=== PATIENT | male | born 1930 | race Caucasian/White ===

== ENCOUNTER → 2019-01-17 | Outpatient (CLI) | payer MEDICARE ==
[~2019-01-17] MED LIST: AC325T PO; ALPR.25T PO; ALPR.5T; AMIT25TA9 PO; AMLO10TA82 PO; AMT50T; ASCO500C14 PO; ASP81CT; ASP81TEC PO; ATR20T PO; C250T PO; CEPH500C PO; CHOL2000 PO; CHOL50003 PO; CIME200T15 PO; CLOP75TA PO; DESV50TA PO; DOXA1TAB PO; FURO20TA4 PO; LACT10SO5 PO; LOSA100T16 PO; MULT1CAP27 PO; NFNEB10T PO; OMG1KC PO; OXYB5TAB PO; PNT40TEC PO; POTA10CA43 PO; SENN1TAB76 PO; TMZP15C PO; WRF2.5T PO; coq10 PO
[2019-01-17 18:12] LABS: BILIRUBIN,URINE NEGATIVE (NEGATIVE); CLARITY,URINE VERY CLOUDY; COLOR,URINE YELLOW; GLUCOSE, URINE (UA) NEGATIVE (NEGATIVE); KETONES,URINE NEGATIVE (NEGATIVE); LEUKOCYTE ESTERASE ,URINE 3+ (NEGATIVE); NITRITE,URINE NEGATIVE (NEGATIVE); PH,URINE 7 (5-9); PROTEIN,URINE 2+ (NEGATIVE); UROBILINOGEN,URINE NORMAL (NORMAL)
[2019-01-17 18:24] LABS: BACTERIA,URINE TRACE /HPF; RBC,URINE 50-100 /HPF; WBC,URINE >100 /HPF
== END ==
LOC: LABNPT 18:09 → MERGE 18:09
PROVIDERS: ATTEND Internal Medicine
DX: R82.90 Unspecified abnormal findings in urine (principal); R93.89 Abnormal findings on diagnostic imaging of other specified body structures; I82.429 Acute embolism and thrombosis of unspecified iliac vein
CPT/HCPCS: 81000; 87088

== ENCOUNTER 2019-06-13 12:50 | Inpatient (IN) | payer MEDICARE ==
[~2019-06-13] VITALS: Ht 180.3 cm; Wt 101.3 kg
[2019-06-13] MEDS ORDERED: NS IV 1000 ML 1,000 ML IV SCH (13:01)
[2019-06-13] MEDS: NS IV 1000 ML 1,000 ML IV SCH ×2 (13:05→13:48)
--- NOTE | 2019-06-13 13:10 | ED General ---
General Stated Complaint: WEAKNESS Source of Information: Patient, EMS, Long-Term Records Exam Limitations: No Limitations History of Present Illness Date Seen by Provider: Jun 13, 2019 Time Seen by Provider: 12:47 Initial Comments Patient presents to ER by private conveyance EMS with a chief complaint of not feeling well since Wednesday, 2 days ago. He was diagnosed with a UTI started on Augmentin and then after the cultures came back they switched him to some kind of cephalosporin. Patient denies any dysuria fever chills cough shortness of breath nausea vomiting abdominal pain. He does have a history of atrial fibrillation on Eliquis. Uses metoprolol 25 mg. He does not have any chest pain. Allergies and Home Medications Allergies Coded Allergies: benazepril (Verified Adverse Reaction, Unknown, cough, 06/13/19) Home Medications Acetaminophen 325 Mg Tablet, 650 MG PO Q4H PRN for PAIN-MILD OR TEMPATURE, (Reported) Alprazolam 0.5 Mg Tablet, 0.5 MG PO HS, (Reported) Alprazolam 0.25 Mg Tablet, 0.25 MG PO Q12H PRN for ANXIETY, (Reported) Amoxicillin 500 Mg Tablet, 2,000 MG PO UD PRN for 1HR PRIOR TO DENTAL PROCEDURE, (Reported) Apixaban 2.5 Mg Tablet, 2.5 MG PO 1200,2000, (Reported) Ascorbic Acid 500 Mg Tablet, 1,000 MG PO 1200,2000, (Reported) TAKES 2 (500MG) TABLETS Calcium Carbonate/Vitamin D3 1 Each Tablet, 1 TAB PO 1200,2000, (Reported) Calcium Polycarbophil 625 Mg Tablet, 2 TAB PO 1700, (Reported) Cefprozil 250 Mg Tablet, 250 MG PO BID, (Reported) 10 DAY SUPPLY START DATE 06-06-19 Cholecalciferol (Vitamin D3) 2,000 Unit Capsule, 2,000 UNIT PO 1700, (Reported) Doxazosin Mesylate 4 Mg Tablet, 4 MG PO HS, (Reported) Famotidine 20 Mg Tablet, 20 MG PO 1200, (Reported) Fish Oil/Dha/Epa 1 Each Capsule, 1,200 MG PO 1200,2000, (Reported) Folic Acid 1 Mg Tablet, 1 MG PO 1200, (Reported) Mag Hydrox/Al Hydrox/Simeth 30 Ml Oral.susp, 30 ML PO Q4H PRN for INDIGESTION, (Reported) Melatonin 3 Mg Tablet, 3 MG PO HS, (Reported) Menthol/Lanolin/Calamine/Znox 71 Gm Oint, TP TID PRN for REDNESS/IRRITATION, (Reported) APPLY TO BUTTOCKS Metoprolol Tartrate 25 Mg Tablet, 25 MG PO BID, (Reported) HOLD IF PULSE <60 Multivitamin/Iron/Folic Acid 1 Each Tablet, 1 TAB PO 1700, (Reported) Nortriptyline HCl 25 Mg Capsule, 50 MG PO HS, (Reported) TAKES 2 (25MG) CAPSULES Potassium Chloride 20 Meq Tab.er.prt, 20 MEQ PO 1700, (Reported) Triamcinolone Acet 15 Gm Cr, TP DAILY PRN for REDNESS ON FACE BY MOUTH, (Reported) Ubidecarenone/Vit E Acetate 1 Each Capsule, 100 MG PO 1700, (Reported) Venlafaxine HCl 25 Mg Tablet, 25 MG PO 1200, (Reported) [Mineral Cream] , TOP UD PRN for DRYNESS/ITCHING, (Reported) APPLY TOPICALLY TO BODY WHEN C/O DRYNESS AND ITCHY Patient Home Medication List Home Medication List Reviewed: Yes Review of Systems Review of Systems Constitutional: No chills, No diaphoresis; weakness EENTM: No hearing loss, No blurred vision Respiratory: No cough, No short of breath Cardiovascular: No chest pain, No edema Gastrointestinal: No abdominal pain, No constipation, No diarrhea Genitourinary: No discharge, No dysuria Musculoskeletal: No back pain, No joint pain Past Thiwlpm-Jwrnum-Rxnvbc Hx Patient Social History Alcohol Use: Denies Use Recreational Drug Use: No Smoking Status: Never a Smoker Immunizations Up To Date Date of Influenza Vaccine: Jul 18, 2014 Past Medical History Atrial Fibrillation, Chronic Edema/Swelling, Coronary Artery Disease, Deep Vein Thrombosis, Heart Attack, Hypertension Reproductive Disorders: No Gastroesophageal Reflux Anxiety, Depression Physical Exam-Suspected Sepsis Physical Exam Vital Signs Vital Signs - First Documented 06/13/19 12:55 Temp 97.6 Pulse 112 Resp 18 B/P (MAP) 131/76 (94) Capillary Refill : Height, Weight, BMI Height: 5'11" Weight: 220lbs. oz. 99.666143lh; BMI Method:Stated General Appearance: No Apparent Distress, WD/WN Eyes: Bilateral Eye Normal Inspection, Bilateral Eye PERRL, Bilateral Eye EOMI HEENT: PERRL/EOMI, Normal ENT Inspection, Pharynx Normal, Moist Mucous Membranes Neck: Full Range of Motion, Normal Inspection, Non Tender Respiratory: Lungs Clear, Normal Breath Sounds, No Accessory Muscle Use, No Respiratory Distress Cardiovascular: No Edema, Normal Peripheral Pulses, Irregularly Irregular, Tachycardia Gastrointestinal: Normal Bowel Sounds, No Organomegaly Genital/Rectal: Other (penis is nontender without lesions and has some purulent matter and urinary incontinence in brief.) Extremity: Normal Capillary Refill, Pedal Edema (1+) Neurologic/Psychiatric: Alert, No Motor/Sensory Deficits, Normal Mood/Affect, Other (oriented to person place) Skin: normal color, warm/dry Focused Exam Sepsis Stage: Sepsis Possible Source: Genitouriary Lactate Level 06/13/19 13:00: Lactic Acid Level 1.94 Time of Focused Exam: 15:11 Respiratory: Lungs Clear, Normal Breath Sounds, No Accessory Muscle Use, No Respiratory Distress Cardiovascular: Regular Rate, Rhythm, No Edema, Normal Peripheral Pulses, Tachycardia Capillary Refill: Less Than 3 Seconds Peripheral Pulses: 2+ Dorsalis Pedis (R), 2+ Left Dors-Pedis (L), 2+ Radial Pulses (R), 2+ Radial Pulses (L) Skin: normal color, warm/dry Lactic Acid Level Laboratory Tests Test 06/13/19 13:00 Lactic Acid Level 1.94 MMOL/L (0.50-2.00) Within 3hrs of presentation: Admin fluids, Admin ABX, Blood cultures prior to ABX's, Focus exam, Lactate level Progress/Results/Core Measures Suspected Sepsis SIRS Temperature: Pulse: Respiratory Rate: Laboratory Tests 06/13/19 13:00: White Blood Count 13.7H Blood Pressure / Mean: 06/13/19 13:00: Lactic Acid Level 1.94 Laboratory Tests 06/13/19 13:00: Creatinine 3.81H, INR Comment 1.0, Platelet Count 199, Total Bilirubin 1.4H Results/Orders Lab Results Laboratory Tests Test 06/13/19 13:00 06/13/19 13:34 06/13/19 13:35 Range/Units White Blood Count 13.7 H 4.3-11.0 10^3/uL Red Blood Count 4.29 L 4.35-5.85 10^6/uL Hemoglobin 13.3 13.3-17.7 G/DL Hematocrit 41 40-54 % Mean Corpuscular Volume 97 80-99 FL Mean Corpuscular Hemoglobin 31 25-34 PG Mean Corpuscular Hemoglobin Concent 32 32-36 G/DL Red Cell Distribution Width 13.7 10.0-14.5 % Platelet Count 199 130-400 10^3/uL Mean Platelet Volume 10.2 7.4-10.4 FL Neutrophils (%) (Auto) 82 H 42-75 % Lymphocytes (%) (Auto) 8 L 12-44 % Monocytes (%) (Auto) 10 0-12 % Eosinophils (%) (Auto) 0 0-10 % Basophils (%) (Auto) 0 0-10 % Neutrophils # (Auto) 11.2 H 1.8-7.8 X 10^3 Lymphocytes # (Auto) 1.1 1.0-4.0 X 10^3 Monocytes # (Auto) 1.3 H 0.0-1.0 X 10^3 Eosinophils # (Auto) 0.0 0.0-0.3 10^3/uL Basophils # (Auto) 0.0 0.0-0.1 10^3/uL Prothrombin Time 13.9 12.2-14.7 SEC INR Comment 1.0 0.8-1.4 Activated Partial Thromboplast Time 30 24-35 SEC Sodium Level 139 135-145 MMOL/L Potassium Level 5.3 H 3.6-5.0 MMOL/L Chloride Level 105 98-107 MMOL/L Carbon Dioxide Level 19 L 21-32 MMOL/L Anion Gap 15 H 5-14 MMOL/L Blood Urea Nitrogen 34 H 7-18 MG/DL Creatinine 3.81 H 0.60-1.30 MG/DL Estimat Glomerular Filtration Rate 15 BUN/Creatinine Ratio 9 Glucose Level 179 H 70-105 MG/DL Lactic Acid Level 1.94 0.50-2.00 MMOL/L Calcium Level 10.1 8.5-10.1 MG/DL Corrected Calcium 9.9 8.5-10.1 MG/DL Total Bilirubin 1.4 H 0.1-1.0 MG/DL Aspartate Amino Transf (AST/SGOT) 46 H 5-34 U/L Alanine Aminotransferase (ALT/SGPT) 71 H 0-55 U/L Alkaline Phosphatase 138 H 40-136 U/L Troponin I 0.083 H <0.028 NG/ML Total Protein 8.1 6.4-8.2 GM/DL Albumin 4.2 3.2-4.5 GM/DL Urine Color YELLOW Urine Clarity CLOUDY H Urine pH 7 5-9 Urine Specific [place] 1.010 L 1.016-1.022 Urine Protein 3+ H NEGATIVE Urine Glucose (UA) NEGATIVE NEGATIVE Urine Ketones NEGATIVE NEGATIVE Urine Nitrite POSITIVE H NEGATIVE Urine Bilirubin NEGATIVE NEGATIVE Urine Urobilinogen NORMAL NORMAL MG/DL Urine Leukocyte Esterase 3+ H NEGATIVE Urine RBC (Auto) 4+ H NEGATIVE Urine RBC NONE /HPF Urine WBC >100 H /HPF Urine Squamous Epithelial Cells NONE /HPF Urine Crystals NONE /LPF Urine Bacteria LARGE H /HPF Urine Casts NONE /LPF Urine Mucus NEGATIVE /LPF Urine Culture Indicated CULTURE PENDING Micro Results Microbiology 06/13/19 Wet Prep - Final, Complete My Orders Orders - NINA MCCARTY Metoprolol Tartrate Injection (Lopressor (06/13/19 13:15) Cbc With Automated Diff (06/13/19 13:01) Comprehensive Metabolic Panel (06/13/19 13:01) Blood Culture (06/13/19 13:01) Sputum Culture (06/13/19 13:01) Urinalysis (06/13/19 13:01) Urine Culture (06/13/19 13:01) Protime With Inr (06/13/19 13:01) Partial Thromboplastin Time (06/13/19 13:01) Chest 1 View, Ap/Pa Only (06/13/19 13:01) Ed Iv/Invasive Line Start (06/13/19 13:01) Ed Iv/Invasive Line Start (06/13/19 13:01) Ekg Tracing (06/13/19 13:01) Troponin I (06/13/19 13:01) Vital Signs Adult Sepsis Patie Q15M (06/13/19 13:01) O2 (06/13/19 13:01) Remove Rings In Anticipation O (06/13/19 13:01) Lactic Acid Analyzer (06/13/19 13:01) Ns Iv 1000 Ml (Sodium Chloride 0.9%) (06/13/19 13:01) Ceftriaxone For Iv Use (Rocephin For I (06/13/19 13:15) Ed Iv/Invasive Line Start (06/13/19 13:01) Ns Iv 1000 Ml (Sodium Chloride 0.9%) (06/13/19 13:01) Wet Prep (06/13/19 13:37) Neis Davonte Dna Urine Test (06/13/19 13:37) Chlamydia Trachomatis Urine (06/13/19 13:37) Azithromycin Tablet (Zithromax Tablet) (06/13/19 13:45) Catheter(Urinary) Insert & Ass 03,15 (06/13/19 13:39) Acetaminophen Tablet (Tylenol Tablet) (06/13/19 14:00) Syphilis Antibody Screen (06/13/19 13:37) Chlamydia Trachomatis Swab (06/13/19 13:37) Neisseria Gonorrhea Swab (06/13/19 13:37) General/Regular (06/13/19 Lunch) Catheter(Urinary) Insert & Ass 03,15 (06/13/19 14:43) Straight Cath For Spec.-Adult (06/13/19 14:43) Medications Given in ED Current Medications Medications Dose Ordered Sig/Zaire Route Start Time Stop Time Status Last Admin Dose Admin Acetaminophen 1,000 mg ONCE ONCE PO 06/13/19 14:00 06/13/19 14:01 DC 06/13/19 14:00 1,000 MG Azithromycin 1,000 mg ONCE ONCE PO 06/13/19 13:45 06/13/19 13:46 DC 06/13/19 14:00 1,000 MG Ceftriaxone Sodium 1000 mg/ Sterile Water 10 ml @ 200 mls/hr ONCE ONCE IV 06/13/19 13:15 06/13/19 13:17 DC 06/13/19 13:20 200 MLS/HR Vital Signs/I&O 06/13/19 12:55 Temp 97.6 Pulse 112 Resp 18 B/P (MAP) 131/76 (94) Capillary Refill : Progress Note : Time: 13:09 Progress Note Tachycardia from either her sepsis related to his UTI and she has no symptoms of or more likely A. fib with rapid ventricular response versus sinus tachycardia. We'll give him 2 L of fluid which would be about a 20 mL/kg fluid bolus Collect a wet prep swab of the purulence coming from the penis and we will also order a GC and chlamydia. He admits to having recently taken up with a lady that resides at the senior care with him. Rocephin and azithromycin. Baseline creatinine 1.2-2.0. ECG Initial ECG Impression Date: Jun 13, 2019 Initial ECG Impression Time: 13:21 Initial ECG Rate: 112 Initial ECG Rhythm: Normal Sinus Initial ECG Intervals: Normal Initial ECG Impression: Normal Comment Sinus tachycardia without clinically significant ST elevation or depression. Diagnostic Imaging Diagonstic Imaging: Xray Plain Films/CT/US/NM/MRI: chest (1v) Comments [facility], [place] NAME: NICOLE BOTELLO [facility] REC#: [id number] PT STATUS: REG ER : 1930 PHYSICIAN: NINA MCCARTY MD ADMIT DATE: 06/13/19/ER Draft Date of Exam:06/13/19 CHEST 1 VIEW, AP/PA ONLY INDICATION: UTI. COMPARISON: 03/24/2012. FINDINGS: There is cardiomegaly. There is a patchy right basilar infiltrate. There is no pleural effusion or pneumothorax. The mediastinum is unremarkable. IMPRESSION: Patchy right basilar infiltrate, suspect for pneumonia. Cardiomegaly. Dictated on workstation # [id number] Dict: 06/13/19 1341 Trans: 06/13/19 1343 [id number] Interpreted by: JOSE CAUSEY MD Electronically signed by: Reviewed: Reviewed by Me Departure Communication (Admissions) Time/Spoke to Admitting Phy: 15:10 Discussed the case lab imaging findings with Dr. Tomas she agrees take the patient. She agrees with cefepime and fluids. Impression Primary Impression: UTI (urinary tract infection) Qualified Codes: N30.01 - Acute cystitis with hematuria Additional Impressions: Sepsis Qualified Codes: A41.9 - Sepsis, unspecified organism; R65.20 - Severe sepsis without septic shock; N17.9 - Acute kidney failure, unspecified Pneumonia Qualified Codes: J18.1 - Lobar pneumonia, unspecified organism Acute kidney injury Elevated troponin I level Disposition: ADMITTED INPATIENT Condition: Stable Admissions Decision to Admit Reason: Admit from ER (General) Decision to Admit/Date: Jun 13, 2019 Time/Decision to Admit Time: 14:00 Departure-Patient Inst. Referrals: BRIANNA DUTTON DO (PCP/Family) Primary Care Physician Copy Copies To 1: BRIANNA DUTTON TITUS J Jun 13, 2019 13:10
[2019-06-13 13:13] LABS: BASOPHILS % (AUTO) 0 % (0-10); EOSINOPHILS % (AUTO) 0 % (0-10); HEMATOCRIT 41 % (40-54); HEMOGLOBIN 13.3 G/DL (13.3-17.7); LYMPHOCYTES # (AUTO) 1.1 X 10^3 (1.0-4.0); LYMPHOCYTES % (AUTO) 8 % (12-44); MEAN CORPUSCULAR HEMOGLOBIN 31 PG (25-34); MEAN CORPUSCULAR HGB CONC 32 G/DL (32-36); MEAN CORPUSCULAR VOLUME 97 FL (80-99); MEAN PLATELET VOLUME 10.2 FL (7.4-10.4); MONOCYTES # (AUTO) 1.3 X 10^3 (0.0-1.0); MONOCYTES % (AUTO) 10 % (0-12); NEUTROPHILS # (AUTO) 11.2 X 10^3 (1.8-7.8); NEUTROPHILS % (AUTO) 82 % (42-75); PLATELET COUNT 199 10^3/uL (130-400); RED CELL DISTRIBUTION WIDTH 13.7 % (10.0-14.5); WHITE BLOOD COUNT 13.7 10^3/uL (4.3-11.0)
[2019-06-13] MEDS ORDERED: meTOprolol 5 MG/5 ML (LOPRESSOR) VIAL IV ONE (13:15)
[2019-06-13] MEDS: cefTRIAXone FOR IV USE 1,000 MG in WATER (STERILE) FOR INJECTION 10 ML IV ONE (13:20)
[2019-06-13 13:21] LABS: PROTHROMBIN TIME PATIENT 13.9 SEC (12.2-14.7)
[2019-06-13 13:29] LABS: ALBUMIN 4.2 GM/DL (3.2-4.5); BILIRUBIN,TOTAL 1.4 MG/DL (0.1-1.0); CALCIUM 10.1 MG/DL (8.5-10.1); CREATININE SERUM 3.81 MG/DL (0.60-1.30); POTASSIUM 5.3 MMOL/L (3.6-5.0); TOTAL PROTEIN 8.1 GM/DL (6.4-8.2)
--- NOTE | 2019-06-13 13:33 | NUR ---
assited physician with genital exam, straight cath inserted at this time for urine sample, pt la nena well
--- NOTE | 2019-06-13 13:40 | NUR ---
16 fr olsen inserted at this time per physician request, sterile technique used, cloudy urine with blood returned, balloon inflated, secured to leg with securement device, pt la nena well, pt requesting tylenol at this time for discomfort in penis after insertion,physician notified of this
--- NOTE | 2019-06-13 13:43 | Diagnostic Imaging Report ---
INDICATION: UTI. COMPARISON: 03/24/2012. FINDINGS: There is cardiomegaly. There is a patchy right basilar infiltrate. There is no pleural effusion or pneumothorax. The mediastinum is unremarkable. IMPRESSION: Patchy right basilar infiltrate, suspect for pneumonia. Cardiomegaly. Dictated by: Dictated on workstation # [id number]
[2019-06-13] MEDS ORDERED: AZITHROMYCIN 250 MG TAB (ZITHROMAX) PO ONE (13:45)
[2019-06-13 13:47] LABS: BILIRUBIN,URINE NEGATIVE (NEGATIVE); COLOR,URINE YELLOW; GLUCOSE, URINE (UA) NEGATIVE (NEGATIVE); KETONES,URINE NEGATIVE (NEGATIVE); LEUKOCYTE ESTERASE ,URINE 3+ (NEGATIVE); NITRITE,URINE POSITIVE (NEGATIVE); PH,URINE 7 (5-9); PROTEIN,URINE 3+ (NEGATIVE); UROBILINOGEN,URINE NORMAL (NORMAL)
[2019-06-13 13:49] LABS: BACTERIA,URINE LARGE /HPF; CLARITY,URINE CLOUDY; WBC,URINE >100 /HPF
[2019-06-13] MEDS ORDERED: ACETAMINOPHEN 500 MG TAB (TYLENOL) PO ONE (14:00)
[2019-06-13] MEDS ORDERED: VENL25TA2 PO (14:20)
[2019-06-13] MEDS ORDERED: POTA20TA15 PO (14:24)
[2019-06-13] MEDS ORDERED: CALC625T9 PO (14:24)
[2019-06-13] MEDS ORDERED: APIX2.5T PO (14:24)
[2019-06-13] MEDS ORDERED: FAMO20TA5 PO (14:24)
[2019-06-13] MEDS ORDERED: MULT1TAB57 PO (14:24)
[2019-06-13] MEDS ORDERED: UBID1CAP53 PO (14:24)
[2019-06-13] MEDS ORDERED: CHOL20002 PO (14:24)
[2019-06-13] MEDS ORDERED: FOLI1TAB24 PO (14:24)
[2019-06-13] MEDS ORDERED: METO-333 PO (14:24)
--- NOTE | 2019-06-13 14:30 | NUR ---
pt sitting quietly in ED bed, pt request food, pt denies any other needs or c/o at this time, vs assessed and stable, pt shows no s/s of distress, will continue to monitor
[2019-06-13] MEDS ORDERED: MAG30ORA2 PO (14:34)
[2019-06-13] MEDS ORDERED: ASCO500T7 PO (14:34)
[2019-06-13] MEDS ORDERED: NORT25CA PO (14:34)
[2019-06-13] MEDS ORDERED: CEFP250T2 PO (14:34)
[2019-06-13] MEDS ORDERED: ALPR0.25 PO (14:34)
[2019-06-13] MEDS ORDERED: MELA3TAB PO (14:34)
[2019-06-13] MEDS ORDERED: AMOX500T2 PO (14:34)
[2019-06-13] MEDS ORDERED: FISH1CAP15 PO (14:34)
[2019-06-13] MEDS ORDERED: DOXA4TAB2 PO (14:34)
[2019-06-13] MEDS ORDERED: ALPR0.5T7 PO (14:34)
[2019-06-13] MEDS ORDERED: ACET325T38 PO (14:34)
[2019-06-13] MEDS ORDERED: TR1C15 TP (14:34)
[2019-06-13] MEDS ORDERED: MENT71OI TP (14:34)
[2019-06-13] MEDS ORDERED: CALC1TAB29 PO (14:34)
[2019-06-13] MEDS ORDERED: MINERAL TOP (14:34)
--- NOTE | 2019-06-13 14:38 | NUR ---
UPDATED MED REC WITH MAR FROM CHRISTI PIPER
--- NOTE | 2019-06-13 14:44 | NUR ---
food order placed at this time
--- NOTE | 2019-06-13 15:20 | NUR ---
report given to Indu
--- NOTE | 2019-06-13 15:30 | NUR ---
NICOLE BOTELLO admitted to room 421-1, with an admitting diagnosis of UTI, on 06/13/19 from ED via CART, accompanied by STAFF. NICOLE BOTELLO introduced to surroundings, call light, bed controls, phone, TV, temperature control, lights, meal times, smoking policy, visitor policy, side rail policy, bathrooms and showers. NICOLE BOTELLO verbalizes understanding that [facility] is not responsible for the loss or damage to any personal effects or valuables that are kept in the patients posession during their hospitalization. The following Patient Care Plans were discussed with the PT: Discharge Planning, PAIN, AND UTI. NICOLE BOTELLO verbalizes understanding of Interdisciplinary Patient Education.
--- NOTE | 2019-06-13 15:45 | NUR ---
DR. IVY NOTIFIED THAT PT TRIGGERS SEVERE SEPSIS RISK. ORDER TO CONTINUE IVF AT CURRENT RATE OF 200CC/HR AND TELEMETRY ORDERED R/T HR 123. PT REMAINS INTERMITTENTLY CONFUSED.
[2019-06-13 16:05] VITALS: BP 116/65
[2019-06-13] MEDS: 1/2 NS IV SOLUTION 1,000 ML IV SCH ×2 (16:12→21:47)
[2019-06-13] MEDS ORDERED: ONDANSETRON 4 MG/2 ML (SDV) Z0FRAN IV PRN (16:15)
[2019-06-13] MEDS ORDERED: CATHETER FLUSH 10 ML SYR IV PRN (16:15)
[2019-06-13] MEDS ORDERED: ACETAMINOPHEN 500 MG TAB (TYLENOL) PO PRN (16:15)
[2019-06-13] MEDS: CEFEPIME 2,000 MG/SWFI 20 ML IV PUSH IV SCH ×2 (16:16)
[2019-06-13 16:50] VITALS: BP 116/65
[2019-06-13 17:14] VITALS: BP 131/76
[2019-06-13] MEDS ORDERED: RT-ALBUTEROL/IPRATROPIUM 3 ML (DUONEB) VIAL INH PRN (18:00)
[2019-06-13] MEDS ORDERED: ALPRAZolam 0.25 MG (XANAX) TAB PO PRN (20:30)
[2019-06-13 20:59] VITALS: BP 158/78
[2019-06-13] MEDS ORDERED: NON-FORMULARY MEDICATION 1 EA EA (Melatonin 3 MG) PO SCH (21:00)
[2019-06-13] MEDS: doxAzosin 4 MG (CARDURA) TAB PO SCH (21:47)
[2019-06-13] MEDS: ALPRAZolam 0.5 MG (XANAX) TAB PO SCH (21:47)
[2019-06-13] MEDS: MELATONIN 3 MG TABLET PO SCH (21:47)
[2019-06-13] MEDS: meTOprolol TARTRATE 25 MG (LOPRESSOR) TABLET PO SCH (21:47)
[2019-06-13] MEDS: NORTRIPTYLINE 25 MG (PAMELOR) CAP PO SCH (21:47)
[2019-06-14 00:40] VITALS: BP 114/60
[2019-06-14] MEDS: 1/2 NS IV SOLUTION 1,000 ML IV SCH ×3 (03:14→19:11)
[2019-06-14 03:50] VITALS: BP 138/72
[2019-06-14 07:19] LABS: BASOPHILS % (AUTO) 0 % (0-10); EOSINOPHILS # (AUTO) 0.1 10^3/uL (0.0-0.3); EOSINOPHILS % (AUTO) 1 % (0-10); HEMATOCRIT 34 % (40-54); HEMOGLOBIN 10.8 G/DL (13.3-17.7); LYMPHOCYTES # (AUTO) 1.7 X 10^3 (1.0-4.0); LYMPHOCYTES % (AUTO) 21 % (12-44); MEAN CORPUSCULAR HEMOGLOBIN 32 PG (25-34); MEAN CORPUSCULAR HGB CONC 32 G/DL (32-36); MEAN CORPUSCULAR VOLUME 98 FL (80-99); MONOCYTES # (AUTO) 0.8 X 10^3 (0.0-1.0); MONOCYTES % (AUTO) 10 % (0-12); NEUTROPHILS # (AUTO) 5.5 X 10^3 (1.8-7.8); NEUTROPHILS % (AUTO) 68 % (42-75); PLATELET COUNT 161 10^3/uL (130-400); RED CELL DISTRIBUTION WIDTH 13.3 % (10.0-14.5); WHITE BLOOD COUNT 8.1 10^3/uL (4.3-11.0)
[2019-06-14 07:47] LABS: BILIRUBIN,TOTAL 0.8 MG/DL (0.1-1.0); CALCIUM 8.2 MG/DL (8.5-10.1); CREATININE SERUM 2.89 MG/DL (0.60-1.30); POTASSIUM 4.5 MMOL/L (3.6-5.0); TOTAL PROTEIN 5.8 GM/DL (6.4-8.2)
[2019-06-14 08:00] VITALS: BP 141/72
--- NOTE | 2019-06-14 08:13 | History & Physical-Hospitalist ---
History of Present Illness HPI/Chief Complaint Patient is an 88-year-old male with a history of vascular dementia, atrial fibrillation, and depression who presented to the emergency room due to weakness. He states that his symptoms started Monday 06/11 and have gradually worsened until yesterday when he was brought to the emergency room for evaluation. He reportedly had been treated for a urinary tract infection with Augmentin and then was switched to cefprozil due to cultures. He denies any fevers or chills, dysuria or frequency. He was found to have a leukocytosis and a UA concerning for persistent infection. Chest x-ray also revealed a patchy right basilar infiltrate. He was admitted for sepsis and failing outpatient management. He reports feeling better today and would like to eat breakfast. Source: patient Date Seen 06/14/19 Time Seen by a Provider: 08:04 Attending Physician Amira Gonzalez MD PCP Guerrero Melendez DO Referring Physician Date of Admission Jun 13, 2019 at 14:50 Home Medications & Allergies Home Medications Reviewed patient Home Medication Reconciliation performed by pharmacy medication reconciliations radioisotope technician and/or nursing. Patients Allergies have been reviewed. Allergies Allergies Coded Allergies benazepril (Verified Adverse Reaction, Unknown, cough, 06/13/19) Past Ivvbmvs-Dpkshd-Rohhro Hx Past Med/Social Hx: Reviewed Nursing Past Med/Soc Hx Patient Social History Marrital Status: Employed/Student: retired Alcohol Use: Denies Use Recreational Drug Use: No Smoking Status: Never a Smoker 2nd Hand Smoke Exposure: No Physical Abuse Screen: No Sexual Abuse: No Recent Foreign Travel: No Contact w/other who traveled: No Recent Hopitalizations: No Recent Infectious Disease Expo: No Immunizations Up To Date Date of Pneumonia Vaccine: Aug 04, 2011 Date of Influenza Vaccine: Jul 18, 2014 Seasonal Allergies Seasonal Allergies: No Past Medical History Cardiac: Atrial Fibrillation, Chronic Edema/Swelling, Coronary Artery Disease, Deep Vein Thrombosis, Heart Attack, Hypertension Reproductive: No Gastrointestinal: Gastroesophageal Reflux Psychosocial: Anxiety, Depression History of Blood Disorders: No Family History Reviewed Nursing Family Hx No Pertinent Family Hx Review of Systems Constitutional: No chills, No fever; weakness EENTM: no symptoms reported Respiratory: No cough, No phlegm, No short of breath Cardiovascular: No chest pain Gastrointestinal: No abdominal pain, No constipation Genitourinary: discharge (patient denies but noted in the ER); No dysuria, No frequency Musculoskeletal: No muscle pain; muscle weakness Physical Exam Physical Exam Vital Signs Vital Signs - First Documented 06/13/19 06/13/19 06/13/19 12:55 15:45 17:14 Temp 97.6 Pulse 112 Resp 18 B/P (MAP) 131/76 (94) Pulse Ox 94 O2 Delivery Room Air FiO2 21 Capillary Refill : Less Than 3 SecondsLess Than 3 Seconds Height, Weight, BMI Height: 5'11.00" Weight: 223lbs. 5.0oz. 101.697944lx; 31.2 BMI Method:Stated General Appearance: No Apparent Distress, Chronically ill HEENT: Moist Mucous Membranes; No Scleral Icterus (L), No Scleral Icterus (R) Neck: Normal Inspection; No Thyromegaly Respiratory: Lungs Clear, No Accessory Muscle Use, No Respiratory Distress Cardiovascular: Regular Rate, Rhythm, No Murmur Gastrointestinal: Normal Bowel Sounds, Non Tender, Soft Extremity: Normal Capillary Refill, No Calf Tenderness, No Pedal Edema Neurologic/Psychiatric: Alert, Oriented x3, Normal Mood/Affect; No Aphasia, No Facial Droop Skin: Normal Color, Warm/Dry Results Results/Procedures Labs Laboratory Tests 06/13/19 13:00 06/14/19 07:10 Patient resulted labs reviewed. Assessment/Plan Admission Diagnosis Sepsis Admission Status: Inpatient Order (span 2 midnights) Reason for Inpatient Admission: Needs IV abx, await cultures Assessment and Plan Sepsis UTI/Pneumonia Continue abx Await cultures Dementia Oriented at this time Aspiration Reports coughing with food and pills Speech therapy consult Diagnosis/Problems Diagnosis/Problems (1) Sepsis Status: Acute Qualifiers: Sepsis type: sepsis due to unspecified organism Sepsis acute organ dysfunction status: with acute organ dysfunction Severe sepsis acute organ dysfunction type: acute renal failure Acute renal failure type: unspecified Severe sepsis shock status: without septic shock Qualified Codes: A41.9 - Sepsis, unspecified organism; R65.20 - Severe sepsis without septic shock; N17.9 - Acute kidney failure, unspecified (2) Acute kidney injury Status: Acute (3) UTI (urinary tract infection) Status: Acute Qualifiers: Urinary tract infection type: acute cystitis Hematuria presence: with hematuria Qualified Codes: N30.01 - Acute cystitis with hematuria (4) Pneumonia Status: Acute Qualifiers: Pneumonia type: due to unspecified organism Laterality: right Lung location: lower lobe of lung Qualified Codes: J18.1 - Lobar pneumonia, unspecified organism Clinical Quality Measures DVT/VTE Risk/Contraindication: Risk Factor Score Per Nursin RFS Level Per Nursing on Admit: 4+=Very High AMIRA GONZALEZ MD Jun 14, 2019 8:13 am
[2019-06-14] MEDS: meTOprolol TARTRATE 25 MG (LOPRESSOR) TABLET PO SCH ×2 (09:13→20:17)
--- NOTE | 2019-06-14 11:44 | Physical Therapy Evaluation ---
PT Evaluation-General Medical Diagnosis Admission Date Jun 13, 2019 at 14:50 Medical Diagnosis: UTI, sepsis Onset Date: Jun 13, 2019 Therapy Diagnosis Therapy Diagnosis: impaired mobility, strength, endurance Height/Weight Height (Feet): 5 Height (Inches): 11.00 Weight (Pounds): 223 Weight (Ounces): 5.0 Precautions Precautions/Isolations: Fall Prevention, Standard Precautions Weight Bear Status Right Lower Extremity: Right Weight Bearing/Tolerated Left Lower Extremity: Left Weight Bearing/Tolerated Referral Physician: Milvia Gonzalez MD Reason for Referral: Evaluation/Treatment Medical History Additional Medical History Past Medical History Cardiac: Atrial Fibrillation, Chronic Edema/Swelling, Coronary Artery Disease, Deep Vein Thrombosis, Heart Attack, Hypertension Reproductive: No Gastrointestinal: Gastroesophageal Reflux Psychosocial: Anxiety, Depression History of Blood Disorders: No Reviewed History: Yes Social History Home: Halfway Entry Into Home: Level Entry Prior/Core FIM Prior Level of Function Therapy Code Descriptions/Definitions Functional [place] Measure: 0=Not Assessed/NA 4=Minimal Assistance 1=Total Assistance 5=Supervision or Setup 2=Maximal Assistance 6=Modified [place] 3=Moderate Assistance 7=Complete [place] Therapy Quality Codes: 6 Independent with activity with or without an assistive device 5 Patient requires set up or clean up by helper. Patient completes activity by themselves 4 Supervision or touching assist (CGA). [place] provide cues , steadying assist 3 The helper provides less than half the effort to complete the activity 2 The helper provides more than half the effort to complete the activity 1 Dependent. The helper does all the effort to complete an activity 7 Patient refused to complete or attempt activity 9 The patient did not perform the activity before the current illness or injury 88 Not attempted due to Medical conditions or safety concerns Functional Abilities and Goals: Independent: Patient completed the activities by him/herself, with or without an assistive device, with no assistance from a helper. Needed Some Help: Patient needed partial assistance from another person to complete activities. Dependent: A helper completed the activities for the patient. Unknown: Not Applicable: Unknown, patient states he was not using an assistive device but unsure of the accuracy of this. PT Evaluation-Current Subjective Patient in recliner pre tx, agrees to PT, has no complaints of pain. Pt/Family Goals Patient in recliner post tx with nurse call, phone, tray, chair alarm on. Objective Patient Orientation: Person, Confused Attachments: Butts Catheter, IV ROM/Strength ROM Lower Extremities WNL Strength Lower Extremities 3+/5 gross bilateral lower extremities Sensory Vision: Functional Hearing: Functional Sensation Right Lower Extremit: Intact Sensation Left Lower Extremity: Intact Transfers Therapy Code Descriptions/Definitions Functional [place] Measure: 0=Not Assessed/NA 4=Minimal Assistance 1=Total Assistance 5=Supervision or Setup 2=Maximal Assistance 6=Modified [place] 3=Moderate Assistance 7=Complete [place] Transfers (B, C, W/C) (FIM): 4 Sit to/from Stand: 4 min assist for sit to stand, cues for hand placement and safety, tries to pull up from the walker Gait Mode of Locomotion: Walk Anticipated Mode of Locomotion: Walk Gait (FIM): 2 Distance: 100' Gait Level of Assist: 4 Gait Persons Needed: 1 Gait Assistive Device: FWW Comments/Gait Description Slow but steady, wheezy breathing, slumped posture Balance Sitting Static: Normal Sitting Dynamic: Normal Standing Static: Good Standing Dynamic: Good Treatment BLE seated exercises x15 (AP, LAQ, hip flexion) Assessment/Needs Patient has impaired mobility, strength, endurance. He needs cues for safety and is wheezy during ambulation but steady. Rehab Potential: Fair PT Short Term Goals Short Term Goals Time Frame: Jun 21, 2019 Transfers (B,C,W/C) (FIM): 5 Gait (FIM): 5 Gait Distance Comment: 150' Gait Level of Assist: 5 Gait Assistive Device: FWW PT Plan Problem List Problem List: Activity Tolerance, Functional Strength, Safety, Balance, Gait, Transfer, Bed Mobility Treatment/Plan Treatment Plan: Continue Plan of Care Treatment Plan: Bed Mobility, Education, Functional Activity [place], Functional Strength, Gait, Safety, Therapeutic Exercise, Transfers Treatment Duration: Jun 21, 2019 Frequency: 6 times per week Estimated Hrs Per Day: .25 hour per day Patient and/or Family Agrees t: Yes Safety Risks/Education Patient Education: Gait Training, Transfer Techniques, Correct Positioning, S afety Issues Teaching Recipient: Patient Teaching Methods: Demonstration, Discussion Response to Teaching: Reinforcement Needed Discharge Recommendations Plan Patient will perform bed mobility and transfer training, balance and endurance training, functional strengthening, gait training, and education, to improve functional mobility and independence at home. Therapy D/C Recommendations: Snf (TCU/NH) Time/GCodes Time In: 1118 Time Out: 1135 Total Billed Treatment Time: 17 Total Billed Treatment 1 visit AMMON PERDOMO PT Jun 14, 2019 11:44
--- NOTE | 2019-06-14 11:48 | Occupational Therapy Eval ---
OT Evaluation-General/PLF Medical Diagnosis Admission Date Jun 13, 2019 at 14:50 Medical Diagnosis: UTI Onset Date: Jun 13, 2019 Therapy Diagnosis Therapy Diagnosis: decreased self care skills Height/Weight Height (Feet): 5 Height (Inches): 11.00 Weight (Pounds): 223 Weight (Ounces): 5.0 Precautions Precautions/Isolations: Fall Prevention, Standard Precautions Safety Interventions: Bed Exit Alarm Referral Physician: Lisa Medical History Pertinent Medical History: Atrial Fib, CAD, Dementia, GERD, HTN, [place] Additional Medical History chronic edema, DVT, anxiety, depression, Reviewed History: Yes Social History Per chart, pt lives at [facility] ADL-Prior Level of Function Therapy Code Descriptions/Definitions Functional [place] Measure: 0=Not Assessed/NA 4=Minimal Assistance 1=Total Assistance 5=Supervision or Setup 2=Maximal Assistance 6=Modified [place] 3=Moderate Assistance 7=Complete [place] Therapy Quality Codes: 6 Independent with activity with or without an assistive device 5 Patient requires set up or clean up by helper. Patient completes activity by themselves 4 Supervision or touching assist (CGA). [place] provide cues , steadying assist 3 The helper provides less than half the effort to complete the activity 2 The helper provides more than half the effort to complete the activity 1 Dependent. The helper does all the effort to complete an activity 7 Patient refused to complete or attempt activity 9 The patient did not perform the activity before the current illness or injury 88 Not attempted due to Medical conditions or safety concerns Functional Abilities and Goals: Independent: Patient completed the activities by him/herself, with or without an assistive device, with no assistance from a helper. Needed Some Help: Patient needed partial assistance from another person to complete activities. Dependent: A helper completed the activities for the patient. Unknown: Not Applicable: ADL PLOF Comments Pt states he is able to walk with FWW and complete most ADLs. Unable to provide detailed information regarding PLOF OT Current Status Subjective Pt in bed, agrees to therapy. No reports of pain. Mental Status/Objective Patient Orientation: Person Attachments: Butts Catheter, IV Current Glasses/Contacts: Yes Hand Dominance: Right Upper Extremity ROM Grossly functional Upper Extremity Coordination Fair Upper Extremity Sensation Intact per pt report Upper Extremity Strength generalized weakness ADL-Treatment ADL-Current Pt supine to sit with min assist for trunk. Pt sat EOB with supervision for akhil streeter during UE assessment/activity. Pt completed grooming tasks while seated EOB. Pt brushed hair and washed face with set up. up to HOB with increased time. Sit to supine with min assist. Pt resting in bed with needs met after session. Therapy Code Descriptions/Definitions Functional [place] Measure: 0=Not Assessed/NA 4=Minimal Assistance 1=Total Assistance 5=Supervision or Setup 2=Maximal Assistance 6=Modified [place] 3=Moderate Assistance 7=Complete [place] Therapy Quality Codes: 6 Independent with activity with or without an assistive device 5 Patient requires set up or clean up by helper. Patient completes activity by themselves 4 Supervision or touching assist (CGA). [place] provide cues , steadying assist 3 The helper provides less than half the effort to complete the activity 2 The helper provides more than half the effort to complete the activity 1 Dependent. The helper does all the effort to complete an activity 7 Patient refused to complete or attempt activity 9 The patient did not perform the activity before the current illness or injury 88 Not attempted due to Medical conditions or safety concerns Grooming (FIM): 5 Education OT Patient Education: Rehab process Teaching Recipient: Patient Teaching Methods: Discussion Response to Teaching: Reinforcement Needed OT Short Term Goals Short Term Goals 1=Demonstrate adherence to instructed precautions during ADL tasks. 2=Patient will verbalize/demonstrate understanding of assistive devices /modifications for ADL. 3=Patient will improve strength/tolerance for activity to enable patient to perform ADL's. OT Care Home Goals Welfare Aide Goals Time Frame: Jun 24, 2019 Bathing(FIM): 4 Upper Body Dressing(FIM): 5 Lower Body Dressing(FIM): 5 Toileting(FIM): 5 Toilet/Commode Transfer(FIM): 5 Additional Goals: 1-Demonstrate ADL Tasks, 2-Verbalize Understanding, 3- ImproveStrength/[place] 1=Demonstrate adherence to instructed precautions during ADL tasks. 2=Patient will verbalize/demonstrate understanding of assistive devices/modifications for ADL. 3=Patient will improve strength/tolerance for activity to enable patient to perform ADL's. OT Education/Plan Problem List/Assessment Assessment: Decreased Activ Tolerance, Dependent Transfers, Impaired Self-Care Skills Pt to benefit from skilled OT intervention for ADL training, transfers, and strengthening to increase level of independence and allow safe discharge plan. Discharge Recommendations Plan/Recommendations: Continue POC Treatment Plan/Plan of Care Treatment,Training & Education: Yes Patient would benefit from OT for education, treatment and training to promote independence in ADL's, mobility, safety and/or upper extremity function for ADL's. Plan of Care: ADL Retraining, Functional Mobility, UE Funct Exercise/Act Treatment Duration: Jun 24, 2019 Frequency: 5 times per week Estimated Hrs Per Day: .25 hour per day Rehab Potential: Fair Time/GCodes Start Time: 09:43 Stop Time: 10:00 Total Time Billed (hr/min): 17 Billed Treatment Time 1 visit, SERGIO(17minutes) SRIKANTH STONE OT Jun 14, 2019 11:48
[2019-06-14 12:00] VITALS: BP_SYST 130; BP_SYST 132; BP_DIAS 64; BP_DIAS 68
[2019-06-14] MEDS ORDERED: NON-FORMULARY MEDICATION 1 EA EA (Famotidine 20 MG) PO SCH (12:00)
--- NOTE | 2019-06-14 12:23 | Diagnostic Imaging Report ---
EXAMINATION: Chest at 1057h. INDICATION: Pneumonia The previous study of 06/13/19 suggested mild pneumonia/atelectasis involving the right lung base. On this study the right lung base does seem better aerated. There is only minimal residual density still present. There may be a very small amount of atelectasis/infiltrate in the left lung base as well. There is no pleural effusion identified. The upper lungs are clear. The heart is stable in size. The mediastinum is not widened. The osseous structures are intact. IMPRESSION: The chest has improved as the right lung base does seem better aerated. There still appears to be a small amount of residual atelectasis/infiltrate in both lower lobes. Clinical follow up is recommended. Dictated by: Dictated on workstation # [id number]
[2019-06-14] MEDS: LACTOBACILLUS ACIDOPHILUS (PROBIOTIC) CAPSULE PO SCH ×2 (12:53→18:10)
[2019-06-14] MEDS: APIXABAN 2.5 MG (ELIQUIS) TABLET PO SCH ×2 (12:53→20:17)
[2019-06-14] MEDS: VENLAFAXINE 50 MG (EFFEXOR) TABLET PO SCH (12:53)
[2019-06-14] MEDS: FAMOTIDINE 20 MG (PEPCID) TABLET PO SCH (12:53)
--- NOTE | 2019-06-14 14:28 | NUR ---
Initial visit: The pt is and recalls this kiosk sales representative from when his on comfort care in this hospital. I engaged in active listening and comforting presence as he visited his grief through storytelling and reminiscing. The pt has demonstrated in the past that privacy is important to him. When I offered to close his door, he thanked me. The pt is [employer] and connected with [facility]. He welcomes kiosk sales representative support.
--- NOTE | 2019-06-14 15:01 | ST Dysphagia Evaluation ---
Speech Evaluation-General Medical Diagnosis UTI Onset Date: Jun 13, 2019 Therapy Diagnosis Therapy Diagnosis: Oropharyngeal Dysphagia Precautions Precautions: Aspiration Precautions/Isolations: Aspiration, Fall Prevention, Standard Precautions Referral Referring Physician: Dr. Gonzalez Reason for Referral: Evaluation/Treatment Medical History Pertinent Medical History: Atrial Fib, CAD, Dementia, GERD, HTN, [place] A-Fib, CAD, Dementia, GERD, HTN, [place] Current History UTI, Oropharyngeal Dysphagia Reviewed History: Yes Social History Home: Longterm Current Living Status: Speech PLF/Current-Dysphagia Prior Level of Function The patient is a resident of a local intermediate where he had his needs met by facility staff as needed. Subjective The patient was patient and cooperative with the Bedside Dysphagia Evaluation Cognitive Status Patient Orientation: Person, Confused Oral Motor Skills Dentition: Natural, Tumbled, Stained Ability to Follow Directions: Fair Patient was NPO pending BDE Oral Expression Ability: Mild Impairment Voice Voice Phonatory-Based Quality: Hoarse Voice Pitch: Mildly Low Voice Loudness: Mildly Soft/Quiet Face Facial Symmetry: Symmetrical Oral-Facial Assessment Oral-Facial Dentition: Normal Labial Seal Description: Weak Smile: Reduced ROM Puff Cheeks: Reduced Strength Lingual Protrusion: Abnormal Lingual ROM: Abnormal Lingual Strength: Abnormal Dysphagia Evaluation Oral Phase: Reduced Oral Transit Pharyngeal Phase: Decreased A/P Bolus Transit, Reduced Laryngeal Elevation, Delayed Swallow Funct. Velo/Pharyngeal Symptom: Cough After Swallow Noted with thin and nectar consistencies Swallowing Precautions: Alternate Liquids/Solids, Liquids from Spoon, No Straw, Small Bites and Sips, Sitting Upright 90 Degrees, Sitting 90 Degrees 30 Post Intake Dysphagia Evaluation Summary The patient was evaluated at bedside. He was alert and pleasant. He was presented with thin and nectar consistencies at 1/2 tsp. each with cough/clear noted post swallow. The patient was presented honey consistency liquid at 1/2 tsp x2 without cough noted. The patient was presented puree and mechanical soft at 1/2 tsp bites x2 each without difficulty. The patient does exhibit decreased bolus management, A-P transfer and slight delayed swallow. Patient will be placed on Dysphagia II diet level with honey consistency liquids. This information was provided to his nurse as well as written on his white board. Patient will receive skilled ST services for dysphagia, training of compensatory strategies. Barriers to Learning The patient has dementia. Speech Short Term Goals Short Term Goals Short Term Goals 1) The patient will tolerate the least restrictive diet without s/s of aspiration at 90% or greater. 2) The patient will utilize compensatory strategies as trained with 90% or greater given minimal cues. Speech Grand [employer] Deputy Sheriff Goals [facility] Goals The patient will maintain adequate nutrition/hydration via safe effective swallow function. Speech-Plan Patient/Family Goals Patient/Family Goals: The patient will return to the intermediate upon hospital discharge. Treatment Plan Speech Therapy Treatment Plan: Continue Plan of Care The patient will receive skilled ST services for dysphagia. Treatment Duration: Jun 16, 2019 Frequency: 4 times per week Estimated Hrs Per Day: .25 hour per day Rehab Potential: Fair Barriers to Learning: Patient has dementia. Pt/Family Agrees to Plan: Yes Safety Risks/Education Teaching Recipient: Patient Teaching Methods: Discussion Response to Teaching: Verbalize Understanding Education Topics Provided: Safety of oral intake and diet level. Time Speech Therapy Time In: 08:15 Speech Therapy Time Out: 08:30 Total Billed Time: 15 Billed Treatment Time 1, NASRIN KURT Iyer Jun 14, 2019 15:01
[2019-06-14 16:45] VITALS: BP 158/77
[2019-06-14] MEDS: CEFEPIME 2,000 MG/SWFI 20 ML IV PUSH IV SCH ×2 (18:10)
[2019-06-14] MEDS: KCL 20 MEQ TAB (K-DUR) PO SCH (18:11)
[2019-06-14 19:24] VITALS: BP 149/68
[2019-06-14] MEDS: NORTRIPTYLINE 25 MG (PAMELOR) CAP PO SCH (20:16)
[2019-06-14] MEDS: doxAzosin 4 MG (CARDURA) TAB PO SCH (20:17)
[2019-06-14] MEDS: ALPRAZolam 0.5 MG (XANAX) TAB PO SCH (20:17)
[2019-06-14] MEDS: MELATONIN 3 MG TABLET PO SCH (20:17)
[2019-06-15 00:35] VITALS: BP 133/76
[2019-06-15 04:30] VITALS: BP 141/75
[2019-06-15] MEDS: LACTOBACILLUS ACIDOPHILUS (PROBIOTIC) CAPSULE PO SCH ×3 (05:35→15:47)
[2019-06-15] MEDS: 1/2 NS IV SOLUTION 1,000 ML IV SCH ×3 (05:35→15:48)
[2019-06-15 08:00] VITALS: BP 141/75
[2019-06-15] MEDS: meTOprolol TARTRATE 25 MG (LOPRESSOR) TABLET PO SCH ×2 (08:03→20:08)
[2019-06-15] MEDS ORDERED: CEFD300C3 PO (08:48)
[2019-06-15] MEDS ORDERED: LACT1CAP7 PO (08:48)
[2019-06-15] MEDS ORDERED: ALPR0.254 PO (08:48)
--- NOTE | 2019-06-15 08:54 | Discharge Inst-Simple/Standard ---
Discharge Inst-Standard Patient Instructions/Follow Up Plan of Care/Instructions/FU: Please continue to take your medications as written. Please follow up with your PCP in the next week to follow up this hospital stay. Activity as Tolerated: Yes Discharge Diet: No Restrictions Return to The Hospital For: Confusion, weakness, fever, chest pain, shortness of breath, if you feel you are getting worse. AMIRA IVY MD Jun 15, 2019 8:54 am
[2019-06-15 10:01] LABS: BASOPHILS % (AUTO) 1 % (0-10); EOSINOPHILS # (AUTO) 0.5 10^3/uL (0.0-0.3); EOSINOPHILS % (AUTO) 8 % (0-10); HEMATOCRIT 37 % (40-54); HEMOGLOBIN 12.1 G/DL (13.3-17.7); LYMPHOCYTES % (AUTO) 17 % (12-44); MEAN CORPUSCULAR HEMOGLOBIN 32 PG (25-34); MEAN CORPUSCULAR HGB CONC 33 G/DL (32-36); MEAN CORPUSCULAR VOLUME 97 FL (80-99); MEAN PLATELET VOLUME 10.4 FL (7.4-10.4); MONOCYTES # (AUTO) 0.5 X 10^3 (0.0-1.0); MONOCYTES % (AUTO) 9 % (0-12); NEUTROPHILS # (AUTO) 3.8 X 10^3 (1.8-7.8); NEUTROPHILS % (AUTO) 66 % (42-75); PLATELET COUNT 169 10^3/uL (130-400); RED CELL DISTRIBUTION WIDTH 13.4 % (10.0-14.5); WHITE BLOOD COUNT 5.8 10^3/uL (4.3-11.0)
[2019-06-15 10:16] LABS: CALCIUM 8.8 MG/DL (8.5-10.1); CREATININE SERUM 2.64 MG/DL (0.60-1.30); POTASSIUM 4.8 MMOL/L (3.6-5.0)
[2019-06-15] MEDS: ACETAMINOPHEN 325 MG TABLET PO PRN ×2 (10:17→15:49)
--- NOTE | 2019-06-15 10:32 | Physical Therapy Daily Note ---
PT Daily Note-Current Subjective Patient agrees to PT. Son present. Patient incontinent BM requiring assistance to cleanse and change. Pain Numeric Pain Scale: 0-No Pain Location: No Pain Reported Mental Status Patient Orientation: Person, Time, Situation Attachments: Butts Catheter, IV Transfers Therapy Code Descriptions/Definitions Functional [place] Measure: 0=Not Assessed/NA 4=Minimal Assistance 1=Total Assistance 5=Supervision or Setup 2=Maximal Assistance 6=Modified [place] 3=Moderate Assistance 7=Complete [place] Therapy Quality Codes: 6 Independent with activity with or without an assistive device 5 Patient requires set up or clean up by helper. Patient completes activity by themselves 4 Supervision or touching assist (CGA). [place] provide cues , steadying assist 3 The helper provides less than half the effort to complete the activity 2 The helper provides more than half the effort to complete the activity 1 Dependent. The helper does all the effort to complete an activity 7 Patient refused to complete or attempt activity 9 The patient did not perform the activity before the current illness or injury 88 Not attempted due to Medical conditions or safety concerns Transfers (B, C, W/C) (FIM): 6 Scootin Supine to/from Sit: 6 Sit to/from Stand: 6 Bed to/from Chair: 6 Patient required assistance to cleanse and change due to incontinent BM Weight Bearing Right Lower Extremity: Right Weight Bearing/Tolerated Left Lower Extremity: Left Weight Bearing/Tolerated Gait Training Gait (FIM): 6 Distance (FIM): 3=150 ft Distance: 325' Gait Level of Assist: 6 Gait Assistive Device: FWW rapid pace with FWW with noted extended UE's requiring VC's for body placement in FWW and for safety Assessment Patient tolerated treatment well and is in recliner with chair alarm activated. RN notified of BM. Plan dismissal to [place] on this date. PT Short Term Goals Short Term Goals Time Frame: Jun 21, 2019 Transfers (B,C,W/C) (FIM): 5 Gait (FIM): 5 Gait Distance Comment: 150' Gait Level of Assist: 5 Gait Assistive Device: FWW PT Plan Treatment/Plan Treatment Plan: Discontinue PT, goals met Treatment Plan: Bed Mobility, Education, Functional Activity [place], Functional Strength, Gait, Safety, Therapeutic Exercise, Transfers Treatment Duration: Jun 21, 2019 Frequency: 6 times per week Estimated Hrs Per Day: .25 hour per day Patient and/or Family Agrees t: Yes Time/GCodes Time In: 830 Time Out: 853 Total Billed Treatment Time: 23 Total Billed Treatment 1 visit FA x 2 23 min TESFAYE GIRALDO PT Jun 15, 2019 10:32
--- NOTE | 2019-06-15 11:18 | Occupational Ther Daily Note ---
OT Current Status-Daily Note Subjective Pt seen supine in bed, pt awake and pleasant. Pt stated pain of 2/10 within molly area due to catheter. Pt stated pain meds already administered. Mental Status/Objective Therapy Code Descriptions/Definitions Functional [place] Measure: 0=Not Assessed/NA 4=Minimal Assistance 1=Total Assistance 5=Supervision or Setup 2=Maximal Assistance 6=Modified [place] 3=Moderate Assistance 7=Complete [place] Attachments: Suprapubic Catheter, Telemetry, Other-See Comments ADL-Treatment Grooming (FIM): 5 (Completed hand hygiene and face washing with s/u.) Lower Body Dressing (FIM): 2 (Pt required s/u for catheter through pant leg; pt required cues for correct positioning and assist with threading BLE. Pt able to pull up pants while standing with SBA. ) Transfers (B, C, W/C) (FIM): 5 (SBA for safety sit to stand from bed utilizing FWW ) With increased time due to delayed processing. Other Treatment Pt completed UE theraband exercises to increase UE strength for ADL/ IADL tasks. Pt did not wear glasses, stating he left them at [place] which required demonstration. Pt return demonstrated arm exercise activity, 10 reps BUE per 3 exercises with red theraband. Pt was unable to multitask during activity, stopping activity during conversation. Pt educated on HEP, asking to complete 2x a day, 10 reps per UE. Pt txfr to chair, pt reclined with call light within reac h. Pt educated of chair alarm and need for call light if needed. All needs met. Education OT Patient Education: Home exercise program, Modified ADL techniques, Purpose of tx/functional activities, Safety issues, Transfer techniques Teaching Recipient: Patient Teaching Methods: Demonstration, Handout, Discussion Response to Teaching: Return Demonstration, Reinforcement Needed Pt required cues for proper positioning during UE exercises. OT Short Term Goals Short Term Goals Transfers (B,C,W/C) (FIM): 5 1=Demonstrate adherence to instructed precautions during ADL tasks. 2=Patient will verbalize/demonstrate understanding of assistive devices/modifications for ADL. 3=Patient will improve strength/tolerance for activity to enable patient to perform ADL's. OT Cutter Aluminum Sheet Goals [facility] Goals Time Frame: Jun 24, 2019 Bathing(FIM): 4 Upper Body Dressing(FIM): 5 Lower Body Dressing(FIM): 5 Toileting(FIM): 5 Toilet/Commode Transfer(FIM): 5 Additional Goals: 1-Demonstrate ADL Tasks, 2-Verbalize Understanding, 3- ImproveStrength/[place] 1=Demonstrate adherence to instructed precautions during ADL tasks. 2=Patient will verbalize/demonstrate understanding of assistive devices/modifications for ADL. 3=Patient will improve strength/tolerance for activity to enable patient to perform ADL's. OT Education/Plan Problem List/Assessment Assessment: Decreased Safety Aware, Decreased UE Strength, Impaired Cognition, Impaired I ADL's, Impaired Self-Care Skills Pt to benefit from skilled OT intervention for ADL training, transfers, and strengthening to increase level of independence and allow safe discharge plan. Discharge Recommendations Plan/Recommendations: Continue POC Therapy Discharge Recommendati: 24 Hour Supervision Treatment Plan/Plan of Care Treatment,Training & Education: Yes Patient would benefit from OT for education, treatment and training to promote independence in ADL's, mobility, safety and/or upper extremity function for ADL's. Plan of Care: ADL Retraining, Functional Mobility, UE Funct Exercise/Act Treatment Duration: Jun 24, 2019 Frequency: 5 times per week Estimated Hrs Per Day: .25 hour per day Rehab Potential: Fair Time/GCodes Start Time: 10:50 Stop Time: 11:10 Total Time Billed (hr/min): 20 Billed Treatment Time 1 ADL 10 EX 10 VIKA CHASE OTR Jun 15, 2019 11:18
[2019-06-15] MEDS: FAMOTIDINE 20 MG (PEPCID) TABLET PO SCH (11:32)
[2019-06-15] MEDS: APIXABAN 2.5 MG (ELIQUIS) TABLET PO SCH ×2 (11:32→20:08)
[2019-06-15] MEDS: VENLAFAXINE 50 MG (EFFEXOR) TABLET PO SCH (11:32)
[2019-06-15 12:00] VITALS: BP 156/88
[2019-06-15] MEDS ORDERED: MEROPENEM 1,000 MG in WATER (STERILE) FOR INJECTION 20 ML IV SCH (12:15)
--- NOTE | 2019-06-15 12:23 | Progress Note - Hospitalist ---
Subjective HPI/CC On Admission Date Seen by Provider: Jun 15, 2019 Time Seen by Provider: 08:30 Patient is an 88-year-old male with a history of vascular dementia, atrial fibrillation, and depression who presented to the emergency room due to weakness. He states that his symptoms started Monday 06/11 and have gradually wo rsened until yesterday when he was brought to the emergency room for evaluation. He reportedly had been treated for a urinary tract infection with Augmentin and then was switched to cefprozil due to cultures. He denies any fevers or chills, dysuria or frequency. He was found to have a leukocytosis and a UA concerning for persistent infection. Chest x-ray also revealed a patchy right basilar in filtrate. He was admitted for sepsis and failing outpatient management. He reports feeling better today and would like to eat breakfast. Subjective/Events-last exam Pt reports feeling better today. Would like to discharge if able. Discussed need to await culture results. Focused Exam Lactate Level 06/13/19 13:00: Lactic Acid Level 1.94 Time of Focused Exam: 15:11 Objective Exam Vital Signs Vital Signs Date Time Temp Pulse Resp B/P (MAP) Pulse Ox O2 Delivery O2 Flow Rate FiO2 06/15/19 08:00 98.4 94 20 141/75 (97) 93 Room Air 06/13/19 17:14 21 Capillary Refill : Less Than 3 SecondsLess Than 3 Seconds General Appearance: No Apparent Distress, WD/WN Cardiovascular: Regular Rate, Rhythm, No Murmur Gastrointestinal: Normal Bowel Sounds, Non Tender, Soft Neurologic/Psychiatric: Alert, Oriented x3 Results/Procedures Lab Laboratory Tests 06/15/19 09:53 Patient resulted labs reviewed. Assessment/Plan Assessment and Plan Assess & Plan/Chief Complaint Sepsis UTI/Pneumonia Continue abx- switch to merrem per sensitivities ESBL in urine Swing bed eval for prolonged antibiotics Dementia Oriented at this time Aspiration Reports coughing with food and pills Speech therapy consulted appreciate recs Debility PT/OT Diagnosis/Problems Diagnosis/Problems (1) Sepsis Status: Acute Qualifiers: Sepsis type: sepsis due to unspecified organism Sepsis acute organ dysfun ction status: with acute organ dysfunction Severe sepsis acute organ dysfunct ion type: acute renal failure Acute renal failure type: unspecified Severe sepsis shock status: without septic shock Qualified Codes: A41.9 - Sepsis, unspecified organism; R65.20 - Severe sepsis without septic shock; N17.9 - Acute kidney failure, unspecified (2) Acute kidney injury Status: Acute (3) UTI (urinary tract infection) Status: Acute Qualifiers: Urinary tract infection type: acute cystitis Hematuria presence: with hematuria Qualified Codes: N30.01 - Acute cystitis with hematuria (4) Pneumonia Status: Acute Qualifiers: Pneumonia type: due to unspecified organism Laterality: right Lung location: lower lobe of lung Qualified Codes: J18.1 - Lobar pneumonia, unspecified organism (5) UTI due to extended-spectrum beta lactamase (ESBL) producing Escherichia coli Clinical Quality Measures DVT/VTE Risk/Contraindication: Risk Factor Score Per Nursin RFS Level Per Nursing on Admit: 4+=Very High AMIRA IVY MD Jun 15, 2019 12:23 pm
[2019-06-15] MEDS: MEROPENEM 500 MG/SWFI 10 ML IV PUSH IV SCH ×4 (12:43→20:08)
--- NOTE | 2019-06-15 15:22 | NUR ---
Swing Bed Note: Qualifies for swing bed for continued need of IV abx (UTI) with continued need of Physical, Occupational, et Speech therapies to return to prior level of function. Ultimate goal is to return to his prior living situation of Assisted Living [facility]. Thank you for this referral!
[2019-06-15] MEDS: CEFEPIME 2,000 MG/SWFI 20 ML IV PUSH IV SCH ×2 (15:47)
[2019-06-15] MEDS: KCL 20 MEQ TAB (K-DUR) PO SCH (15:47)
[2019-06-15 15:51] VITALS: BP 153/86
[2019-06-15 19:29] VITALS: BP 138/75
[2019-06-15] MEDS: ALPRAZolam 0.5 MG (XANAX) TAB PO SCH (20:08)
[2019-06-15] MEDS: MELATONIN 3 MG TABLET PO SCH (20:08)
[2019-06-15] MEDS: NORTRIPTYLINE 25 MG (PAMELOR) CAP PO SCH (20:08)
[2019-06-15] MEDS: doxAzosin 4 MG (CARDURA) TAB PO SCH (20:08)
[2019-06-16 00:05] VITALS: BP 147/82
[2019-06-16] MEDS: 1/2 NS IV SOLUTION 1,000 ML IV SCH (01:42)
[2019-06-16 04:05] VITALS: BP 147/84
[2019-06-16] MEDS: MEROPENEM 500 MG/SWFI 10 ML IV PUSH IV SCH ×2 (04:58)
[2019-06-16] MEDS: LACTOBACILLUS ACIDOPHILUS (PROBIOTIC) CAPSULE PO SCH (06:22)
[2019-06-16 08:00] VITALS: BP 150/89
--- NOTE | 2019-06-16 08:02 | Discharge Summary ---
Diagnosis/Chief Complaint Date of Admission Jun 13, 2019 at 2:50 pm Date of Discharge Discharge Date: Jun 15, 2019 Admission Diagnosis Sepsis Primary Care Guerrero Melendez DO Discharge Diagnosis (1) Sepsis Status: Acute (2) Acute kidney injury Status: Acute (3) UTI (urinary tract infection) Status: Acute (4) Pneumonia Status: Acute (5) UTI due to extended-spectrum beta lactamase (ESBL) producing Escherichia coli Discharge Summary Discharge Physical Exam Allergies: Coded Allergies: benazepril (Verified Adverse Reaction, Unknown, cough, 06/13/19) Vitals & I&Os Vital Signs Date Time Temp Pulse Resp B/P (MAP) Pulse Ox O2 Delivery O2 Flow Rate FiO2 06/16/19 08:00 Room Air 06/16/19 08:00 98.6 107 20 150/89 (109) 94 06/13/19 17:14 21 General Appearance: No Apparent Distress, WD/WN Respiratory: Lungs Clear, No Respiratory Distress Cardiovascular: Regular Rate, Rhythm, No Murmur Neurologic/Psychiatric: Alert, Oriented x3 Hospital Course Pt was admitted due to UTI and sepsis. He responded well to antibiotics and preparations were being made to discharge back to the [facility] but cultures and sensitivities revealed ESBL e.coli. He was transitioned to Merrem on 06/15/19 and discharged to swing bed status to complete course. His blood cultures were negative. I have requested fosfomycin sensitivity testing as well. Labs (last 24 hrs) Microbiology 06/13/19 Blood Culture - Preliminary, Resulted No growth 06/13/19 Wet Prep - Final, Complete 06/13/19 Urine Culture - Final, Complete Escherichia coli Patient resulted labs reviewed. Discussion & Recommendations Discharge Planning: >30 minutes discharge planning Discharge Home Medications: Active Scripts Active Reported [Mineral Cream] TOP UD PRN APPLY TOPICALLY TO BODY WHEN C/O DRYNESS AND ITCHY Xanax (Alprazolam) 0.25 Mg Tablet 0.25 Mg PO Q12H PRN Triamcinolone Acetonide 0.1% Cream (Triamcinolone Acet) 15 Gm Cr TP DAILY PRN Calmoseptine Ointment (Menthol/Lanolin/Calamine/Znox) 71 Gm Oint TP TID PRN APPLY TO BUTTOCKS Mylanta Suspension (Al Hydrox/Mg Hydrox/Simethicone) 30 Ml Oral.susp 30 Ml PO Q4H PRN Tylenol (Acetaminophen) 325 Mg Tablet 650 Mg PO Q4H PRN Amoxicillin 500 Mg Tablet 2,000 Mg PO UD PRN Melatonin 3 Mg Tablet 3 Mg PO HS Alprazolam 0.5 Mg Tablet 0.5 Mg PO HS Doxazosin Mesylate 4 Mg Tablet 4 Mg PO HS Nortriptyline HCl 25 Mg Capsule 50 Mg PO HS TAKES 2 (25MG) CAPSULES Fish Oil 1,200 mg Fish Oil (Fish Oil/Dha/Epa) 1 Each Capsule 1,200 Mg PO 1200,2000 Os-Dong 500+D3 Caplet (Calcium Carbonate/Vitamin D3) 1 Each Tablet 1 Tab PO 1200,2000 Ascorbic Acid 500 Mg Tablet 1,000 Mg PO 1200,2000 TAKES 2 (500MG) TABLETS Metoprolol Tartrate 25 Mg Tablet 25 Mg PO BID HOLD IF PULSE <60 Eliquis (Apixaban) 2.5 Mg Tablet 2.5 Mg PO 1200,2000 Co Q-10 100 mg Softgel (Ubidecarenone/Vit E Acetate) 1 Each Capsule 100 Mg PO 1700 Fiber-Lax (Calcium Polycarbophil) 625 Mg Tablet 2 Tab PO 1700 Cerovite Advanced Form Tab (Multivitamin/Iron/Folic Acid) 1 Each Tablet 1 Tab PO 1700 Potassium Chloride 20 Meq Tab.er.prt 20 Meq PO 1700 Famotidine 20 Mg Tablet 20 Mg PO 1200 Folic Acid 1 Mg Tablet 1 Mg PO 1200 Vitamin D-3 (Cholecalciferol (Vitamin D3)) 2,000 Unit Capsule 2,000 Unit PO 1700 Instructions to patient/family Please see electronic discharge instructions given to patient. Clinical Quality Measures DVT/VTE Risk/Contraindication: Risk Factor Score Per Nursin RFS Level Per Nursing on Admit: 4+=Very High Problem Qualifiers (1) Sepsis: Sepsis type: sepsis due to unspecified organism Sepsis acute organ dysfunction status: with acute organ dysfunction Severe sepsis acute organ dysfunction type: acute renal failure Acute renal failure type: unspecified Severe sepsis shock status: without septic shock Qualified Codes: A41.9 - Sepsis, unspecified organism; R65.20 - Severe sepsis without septic shock; N17.9 - Acute kidney failure, unspecified (2) UTI (urinary tract infection): Urinary tract infection type: acute cystitis Hematuria presence: with hematuria Qualified Codes: N30.01 - Acute cystitis with hematuria (3) Pneumonia: Pneumonia type: due to unspecified organism Laterality: right Lung location: lower lobe of lung Qualified Codes: J18.1 - Lobar pneumonia, unspecified organism AMIRA IVY MD Jun 16, 2019 08:02
[2019-06-16] MEDS: meTOprolol TARTRATE 25 MG (LOPRESSOR) TABLET PO SCH (08:40)
--- NOTE | 2019-06-16 09:36 | NUR ---
discharged to swing bed status. continue current orders
[2019-06-16] MEDS ORDERED: MEROPENEM 500 MG/SWFI 10 ML IV PUSH IV SCH ×2 (18:00)
[2019-06-16] MEDS ORDERED: ALPRAZolam 0.25 MG (XANAX) TAB PO SCH (21:00)
--- NOTE | 2019-06-20 17:06 | Physician Query Clarification ---
PQ-Intro New Diagnosis Admission/Discharge Admission Date: Jun 13, 2019 at 14:50 Discharge Date: Jun 16, 2019 at 10:27 The medical record reflects the following clinical scenario: History/Risk Factors: sepsis, infiltrate Clinical Findings: sepsis, UTI, pneumonia Treatment: IV abx Question: What condition best reflects the above clinical scenario? Please document a response in the Progress Noter or Discharge Summary. 1. Lobar pneumonia 2. Aspiration pneumonia 3. Other, with explanation of the clinical findings. 4. Clinically undetermined, no explanation for the clinical findings. PHYSICIAN RESPONSE What condition reflects above: 1 Please remember a lack of response to the above will prompt a phone page by CDI/Coding staff. In responding to this query, please exercise your independent professional judgment. The purpose of this communication is to more accurately reflect the complexity of your patients condition. The fact that a question is asked does not imply that any particular answer is desired or expected. Thank you for your timely response to this clarification. Requestors name: [ ] Phone # [ ] THIS PHYSICIAN QUERY FORM IS A PERMANENT PART OF THE MEDICAL RECORD TOMMY CAMPOS Jun 20, 2019 17:06 AMIRA IVY MD Jun 21, 2019 12:34
== END 2019-06-16 10:27 | disposition swing bed (61) | DRG 871 ==
LOC: EDUNIT# 12:50 → ER 12:51 → 4TH 14:50
PROVIDERS: ADMIT Family Medicine; ATTEND Family Medicine
DX: A41.9 Sepsis, unspecified organism (principal); R65.20 Severe sepsis without septic shock; J18.1 Lobar pneumonia, unspecified organism; N30.01 Acute cystitis with hematuria; N17.9 Acute kidney failure, unspecified; I48.91 Unspecified atrial fibrillation; Z66 Do not resuscitate; R60.9 Edema, unspecified; I25.10 Atherosclerotic heart disease of native coronary artery without angina pectoris; I25.2 Old myocardial infarction; I10 Essential (primary) hypertension; K21.9 Gastro-esophageal reflux disease without esophagitis; F41.9 Anxiety disorder, unspecified; F32.9 Major depressive disorder, single episode, unspecified; R79.89 Other specified abnormal findings of blood chemistry; F01.50 Vascular dementia, unspecified severity, without behavioral disturbance, psychotic disturbance, mood disturbance, and anxiety; Z79.01 Long term (current) use of anticoagulants; Z86.718 Personal history of other venous thrombosis and embolism; Z16.12 Extended spectrum beta lactamase (ESBL) resistance
CPT/HCPCS: 36415; 51701; 71045; 71046; 80048; 80053; 81000; 82962; 83605; 84484; 85025; 85610; 85730; 86780; 87040; 87077; 87088; 87184; 87186; 87210; 87491; 87591; 93005; 94760; 96374

== ENCOUNTER 2019-06-16 10:13 | Inpatient (IN) | payer MEDICARE ==
[~2019-06-16] VITALS: Ht 180.3 cm; Wt 101.3 kg
[~2019-06-16 10:13] MED LIST changes: +ACET325T38 PO; +ALPR0.25 PO; +ALPR0.254 PO; +ALPR0.5T7 PO; +AMOX500T2 PO; +APIX2.5T PO; +ASCO500T7 PO; +CALC1TAB29 PO; +CALC625T9 PO; +CEFD300C3 PO; +CEFP250T2 PO; +CHOL20002 PO; +DOXA4TAB2 PO; +FAMO20TA5 PO; +FISH1CAP15 PO; +FOLI1TAB24 PO; +LACT1CAP7 PO; +MAG30ORA2 PO; +MELA3TAB PO; +MENT71OI TP; +METO-333 PO; +MINERAL TOP; +MULT1TAB57 PO; +NORT25CA PO; +POTA20TA15 PO; +TR1C15 TP; +UBID1CAP53 PO; +VENL25TA2 PO
[2019-06-16] MEDS ORDERED: CATHETER FLUSH 10 ML SYR IV PRN (10:30)
[2019-06-16] MEDS ORDERED: ONDANSETRON 4 MG/2 ML (SDV) Z0FRAN IV PRN (10:30)
[2019-06-16] MEDS ORDERED: ACETAMINOPHEN 325 MG TABLET PO PRN (10:30)
[2019-06-16] MEDS ORDERED: RT-ALBUTEROL/IPRATROPIUM 3 ML (DUONEB) VIAL INH PRN (10:30)
--- NOTE | 2019-06-16 10:32 | NUR ---
Swing Bed Note: Qualifies for swing bed for continued need of IV abx (UTI) with continued need of Physical, Occupational, et Speech therapies to return to prior level of function. Ultimate goal is to return to his prior living situation of Assisted Living [facility]. Thank you for this referral!
[2019-06-16] MEDS ORDERED: ALPRAZolam 0.25 MG (XANAX) TAB PO PRN (10:45)
--- NOTE | 2019-06-16 10:53 | NUR ---
Admission Drug Regimen Review: Date: 06/16/19 Time: 1053 Review Completed, No Issues found
--- NOTE | 2019-06-16 11:44 | Occupational Therapy Eval ---
OT Evaluation-General/PLF Medical Diagnosis Admission Date Jun 16, 2019 at 10:36 Medical Diagnosis: Continued IV abx for UTI Onset Date: Jun 16, 2019 Therapy Diagnosis Therapy Diagnosis: decreased ADLs and fx mobility Height/Weight Height (Feet): 5 Height (Inches): 11.00 Weight (Pounds): 223 Weight (Ounces): 5.0 Precautions Precautions/Isolations: Contact Isolation Safety Interventions: Bed Exit Alarm Referral Physician: France Du Referral Reason: Activity Tolerance, Self Care, Evaluation/Treatment, Strengthening/ROM Medical History Pertinent Medical History: Atrial Fib, CAD, Dementia, GERD, HTN, [place] Additional Medical History PMHx: dysphagia, CAD, HTN, DVT Current History Per H&P: "Qualifies for swing bed for continued need of IV abx (UTI) with continued need of Physical, Occupational, et Speech therapies to return to prior level of function. Ultimate goal is to return to his prior living situation of Assisted Living [facility]." Reviewed History: Yes Social History Home: [facility] ([facility]) Entry Into Home: Stairs Without Railing Steps Into Home: 1 Steps Inside Home: 0 Pt lives on main floor ADL-Prior Level of Function Therapy Code Descriptions/Definitions Functional [place] Measure: 0=Not Assessed/NA 4=Minimal Assistance 1=Total Assistance 5=Supervision or Setup 2=Maximal Assistance 6=Modified [place] 3=Moderate Assistance 7=Complete [place] Therapy Quality Codes: 6 Independent with activity with or without an assistive device 5 Patient requires set up or clean up by helper. Patient completes activity by themselves 4 Supervision or touching assist (CGA). [place] provide cues , steadying assist 3 The helper provides less than half the effort to complete the activity 2 The helper provides more than half the effort to complete the activity 1 Dependent. The helper does all the effort to complete an activity 7 Patient refused to complete or attempt activity 9 The patient did not perform the activity before the current illness or injury 88 Not attempted due to Medical conditions or safety concerns Functional Abilities and Goals: Independent: Patient completed the activities by him/herself, with or without an assistive device, with no assistance from a helper. Needed Some Help: Patient needed partial assistance from another person to complete activities. Dependent: A helper completed the activities for the patient. Unknown: Not Applicable: ADL PLOF Comments Pt stated mod I with ADL/ IADLs within [facility]. Pt utilized FWW for mobilization Self Care: Needed Some Help Functional Cognition: Needed Some Help DME/Equipment: Bath Chair DME/Equipment Comments Pt has walk in shower with grab bars, toilet with grab bars Occupation: [employer] [address] Self: No OT Current Status Subjective Pt seen in bed, awake and laying supine. Pt has no c/o pain, coughing intermittently. Pt agreed to OT eval. Pain Numeric Pain Scale: 0-No Pain Location: No Pain Reported Mental Status/Objective Patient Orientation: Person, Place, Situation (Stated he was in the hospital for weakness.) Attachments: Butts Catheter, Telemetry Current Glasses/Contacts: Yes Hearing Aids: No Dentures/Partials: No Hand Dominance: Right Upper Extremity ROM WFL Upper Extremity Coordination WFL finger opposition Upper Extremity Sensation WFL, no c/o tingling/ numbness Upper Extremity Strength WFL ADL-Treatment Eating (FIM): 5 (Requires s/u ) Eating (QC): 5 (Requires s/u) Grooming (FIM): 5 (S/u needed for hair, teeth, and face/ hand hygiene) Oral Hygiene (QC): 5 (S/u) Lower Body Dressing (FIM): 5 (S/u and cues for shoes) Lower Body Dressing (QC): 5 (S/u shoes) On/Off Footwear (QC): 5 (S/u and cues ) Toileting (FIM): 0 (DNT- Butts cathether and no desire for bathroom) Transfers (B, C, W/C) (FIM): 5 (SBA for safety due to confusion and weakness) Toilet/Commode Transfer (FIM): 5 (SBA for safety) Tub Transfer (FIM): 5 (SBA for safety) Other Treatments Pt completed grooming in chair, able to complete grooming with s/u. Pt Education OT Patient Education: Correct positioning, Energy conservation, Modified ADL techniques, Purpose of tx/functional activities, Rehab process, Safety issues, Transfer techniques, Use of adapted equipment Teaching Recipient: Patient Teaching Methods: Demonstration, Discussion Response to Teaching: Verbalize Understanding, Return Demonstration OT Short Term Goals Short Term Goals Bathing(FIM): 4 Upper Body Dressing(FIM): 3 Toileting(FIM): 4 1=Demonstrate adherence to instructed precautions during ADL tasks. 2=Patient will verbalize/demonstrate understanding of assistive devices/ modifications for ADL. 3=Patient will improve strength/tolerance for activity to enable patient to perform ADL's. OT Half-Way Goals Half-Way Goals Eating (FIM): 7 Eating (QC): 6 Groomin Oral Hygiene (QC): 6 Bathing(FIM): 5 Shower/Bathe Self (QC): 5 Upper Body Dressing(FIM): 5 Upper Body Dressing (QC): 4 Lower Body Dressing(FIM): 5 Lower Body Dressing (QC): 4 On/Off Footwear (QC): 7 Toileting(FIM): 6 Toileting Hygiene (QC): 6 Transfers (B,C,W/C) (FIM): 6 Toilet/Commode Transfer(FIM): 6 Toilet/Commode Transfer (QC): 6 Tub Transfer(FIM): 5 Shower Transfer(FIM): 5 Additional Goals: 1-Demonstrate ADL Tasks, 2-Verbalize Understanding, 3- ImproveStrength/[place] 1=Demonstrate adherence to instructed precautions during ADL tasks. 2=Patient will verbalize/demonstrate understanding of assistive devices/modifications for ADL. 3=Patient will improve strength/tolerance for activity to enable patient to perform ADL's. OT Education/Plan Problem List/Assessment Assessment: Decreased Activ Tolerance, Decreased Safety Aware, Impaired Funct Balance, Impaired I ADL's, Impaired Self-Care Skills Discharge Recommendations Plan/Recommendations: Continue POC Therapy Discharge Recommendati: Other, See Comments (return to [facility]- [facility]) Equpiment Recommendations-D/C: Bath Chair Comment Pt would benefit from shower seat within walk-in shower due to decreased endurance in order to increase IND with daily task. Target Placement [place], [place] Patient/Family Goals Pt desires to walk with FWW in order to complete tasks with more IND, additionally become more IND with ADLs Treatment Plan/Plan of Care Treatment,Training & Education: Yes Patient would benefit from OT for education, treatment and training to promote independence in ADL's, mobility, safety and/or upper extremity function for ADL's. Plan of Care: ADL Retraining, Functional Mobility, Group Exercise/Act as Ind, UE Funct Exercise/Act Frequency: 5 times per week Estimated Hrs Per Day: .25 hour per day Agreement: Yes Rehab Potential: Fair Time/GCodes Start Time: 11:10 Stop Time: 11:20 Total Time Billed (hr/min): 10 Billed Treatment Time 1 EVM VIKA KWON OTR Jun 16, 2019 11:44
--- NOTE | 2019-06-16 12:49 | Physical Therapy Evaluation ---
PT Evaluation-General Medical Diagnosis Admission Date Jun 16, 2019 at 10:36 Medical Diagnosis: Continued IV abx for UTI Onset Date: Jun 16, 2019 Therapy Diagnosis Therapy Diagnosis: impaired mobility, strength, endurance Height/Weight Height (Feet): 5 Height (Inches): 11.00 Weight (Pounds): 223 Weight (Ounces): 5.0 Precautions Precautions/Isolations: Contact Isolation Weight Bear Status Right Lower Extremity: Right Weight Bearing/Tolerated Left Lower Extremity: Left Weight Bearing/Tolerated Referral Physician: France Du Reason for Referral: Evaluation/Treatment Medical History Pertinent Medical History: Atrial Fib, CAD, Dementia, GERD, HTN, [place] Reviewed History: Yes Social History Home: [facility]) Entry Into Home: Stairs Without Railing PT Steps Into Home: 1 PT Steps Inside Home: 0 Prior/Core FIM Prior Level of Function Therapy Code Descriptions/Definitions Functional [place] Measure: 0=Not Assessed/NA 4=Minimal Assistance 1=Total Assistance 5=Supervision or Setup 2=Maximal Assistance 6=Modified [place] 3=Moderate Assistance 7=Complete [place] Therapy Quality Codes: 6 Independent with activity with or without an assistive device 5 Patient requires set up or clean up by helper. Patient completes activity by themselves 4 Supervision or touching assist (CGA). Sweetser provide cues , steadying assist 3 The helper provides less than half the effort to complete the activity 2 The helper provides more than half the effort to complete the activity 1 Dependent. The helper does all the effort to complete an activity 7 Patient refused to complete or attempt activity 9 The patient did not perform the activity before the current illness or injury 88 Not attempted due to Medical conditions or safety concerns Functional Abilities and Goals: Independent: Patient completed the activities by him/herself, with or without an assistive device, with no assistance from a helper. Needed Some Help: Patient needed partial assistance from another person to complete activities. Dependent: A helper completed the activities for the patient. Unknown: Not Applicable: unknown PT Evaluation-Current Subjective Patient in recliner pre tx, agrees to PT, has no complaints of pain. Patient seems confused but is very intent on ordering his lunch, this therapist orders his lunch for him, he has a modified diet. Pt/Family Goals none stated Objective Patient Orientation: Person, Confused Attachments: IV ROM/Strength ROM Lower Extremities WNL Strenght Lower Extremities 3+/5 gross bilateral lower extremities Sensory Vision: Functional Hearing: Functional Hand Dominance: Right Sensation Right Lower Extremit: Intact Sensation Left Lower Extremity: Intact Transfers Therapy Code Descriptions/Definitions Functional [place] Measure: 0=Not Assessed/NA 4=Minimal Assistance 1=Total Assistance 5=Supervision or Setup 2=Maximal Assistance 6=Modified [place] 3=Moderate Assistance 7=Complete [place] Therapy Quality Codes: 6 Independent with activity with or without an assistive device 5 Patient requires set up or clean up by helper. Patient completes activity by themselves 4 Supervision or touching assist (CGA). Sweetser provide cues , steadying assist 3 The helper provides less than half the effort to complete the activity 2 The helper provides more than half the effort to complete the activity 1 Dependent. The helper does all the effort to complete an activity 7 Patient refused to complete or attempt activity 9 The patient did not perform the activity before the current illness or injury 88 Not attempted due to Medical conditions or safety concerns Transfers (B, C, W/C) (FIM): 4 Sit to/from Stand: 4 Sit to Stand (QC): 3 Chair/Ksm-hb-Nxrtv Xfer(QC): 4 Min assist for sit to stand from lower surfaces, CGA for transfers, patient needs cues for hand placement and safety. Gait Does the Patient Walk?: Yes Mode of Locomotion: Walk Anticipated Mode of Locomotion: Walk Gait (FIM): 2 Walk 10 feet (QC): 4 Walk 50 ft with 2 Turns(QC): 4 Distance: 50' Gait Level of Assist: 4 Gait Persons Needed: 1 Gait Assistive Device: FWW Comments/Gait Description Patient ambulates slow but steady, stayed in his room walking back and forth, cues for safety Balance Sitting Static: Good Sitting Dynamic: Good Standing Static: Fair Standing Dynamic: Fair Treatment seated BLE exercises x15 (AP, LAQ, marching) Assessment/Needs Patient has impaired mobility, strength, endurance. Steady during ambulation but needs cues for direction. Gets SOB with activity. Rehab Potential: Fair PT Custodial Goals Custodial Goals PT Ancillary Services Manager Therapy Goals Time Frame: Jun 23, 2019 Transfers (B,C,W/C) (FIM): 5 Sit to Lying (QC): 4 Lying-Sitting on Side/Bed(QC): 4 Sit to Stand (QC): 4 Rollin Roll Left to Right (QC): 4 Chair/Url-sm-Lucpb Xfer(QC): 4 Gait (FIM): 5 Distance: 150' Walk 10 feet (QC): 4 Walk 50ft with 2 Turns (QC): 4 Walk 150 ft (QC): 4 Gait Level of Assist: 5 Gait Assistive Device: FWW PT Plan Problem List Problem List: Activity Tolerance, Functional Strength, Safety, Balance, Gait, Transfer, Bed Mobility Treatment/Plan Treatment Plan: Continue Plan of Care Treatment Plan: Bed Mobility, Education, Functional Activity [place], Functional Strength, Gait, Safety, Therapeutic Exercise Treatment Duration: Jun 23, 2019 Frequency: 6 times per week Estimated Hrs Per Day: .25 hour per day Patient and/or Family Agrees t: Yes Safety Risks/Education Patient Education: Gait Training, Transfer Techniques, Correct Positioning, Safety Issues Teaching Recipient: Patient Teaching Methods: Demonstration, Discussion Response to Teaching: Reinforcement Needed Discharge Recommendations Plan Patient will perform bed mobility and transfer training, functional strengthening, gait training, balance and endurance training, and education, to improve functional mobility and independence at home. Therapy Discharge Recommendati: Other, See Comments (long term) Time/GCodes Time In: 1130 Time Out: 1200 Total Billed Treatment Time: 30 Total Billed Treatment 1 visit SERGIO 15' FA 15' AMMON BARFIELD PT Jun 16, 2019 12:49
[2019-06-16] MEDS: LACTOBACILLUS ACIDOPHILUS (PROBIOTIC) CAPSULE PO SCH ×2 (13:18→17:11)
[2019-06-16] MEDS: APIXABAN 2.5 MG (ELIQUIS) TABLET PO SCH ×2 (13:18→20:36)
[2019-06-16] MEDS: FAMOTIDINE 20 MG (PEPCID) TABLET PO SCH (13:18)
[2019-06-16] MEDS: MEROPENEM 500 MG in WATER (STERILE) FOR INJECTION 10 ML IV SCH (13:19)
--- NOTE | 2019-06-16 13:39 | ST Dysphagia Evaluation ---
Speech Evaluation-General Medical Diagnosis Continued IV abx for UTI Onset Date: Jun 16, 2019 Therapy Diagnosis Therapy Diagnosis: Oropharyngeal Dysphagia Precautions Precautions: Fall, Aspiration Precautions/Isolations: Contact Isolation, Aspiration, Fall Prevention Referral Referring Physician: Dr. Gonzalez Reason for Referral: Evaluation/Treatment Medical History Pertinent Medical History: Atrial Fib, CAD, Dementia, GERD, HTN, [place] A-Fib, Dementia, GERD, CAD, HTN, [place] Current History Continued IV antibiotics for UTI Reviewed History: Yes Social History Home: Prison Current Living Status: Speech PLF/Current-Dysphagia Prior Level of Function The patient lives in a local jail where he was assisted with his daily needs. Subjective The patient was pleasant and cooperative with his BDE Oral Motor Skills Dentition: Natural Current Food Consistancy: Mechanical Soft, Honey Liquids Oral Expression Ability: Mild Impairment Voice Voice Phonatory-Based Quality: Hoarse Voice Pitch: Normal Voice Loudness: Mildly Loud Face Facial Symmetry: Symmetrical Oral-Facial Assessment Oral-Facial Dentition: Normal Labial Seal Description: Weak Puff Cheeks: Reduced Strength Lingual Protrusion: Abnormal Lingual ROM: Abnormal Lingual Strength: Abnormal Pharynx Velopharyngeal Move.: Normal Volitional Dry Swallow: Yes Voluntary Cough: Yes Productive Cough: Yes Dysphagia Evaluation Consistencies Presented: Regular, Mechanical Soft, [place] Thick Liquid, Honey Thick Liquid, Pureed Oral Phase: Reduced Oral Transit Pharyngeal Phase: Decreased A/P Bolus Transit, Delayed Swallow Funct. Velo/Pharyngeal Symptom: Cough After Swallow Dietary Recommendations: Mechanical Soft Liquid Recommendations: Honey Consistancy Swallowing Precautions: Alternate Liquids/Solids, Liquids from Spoon, No Straw, Small Bites and Sips, Sitting Upright 90 Degrees, Sitting 90 Degrees 30 Post Intake Dysphagia Evaluation Summary The patient was assessed for his current level of swallow function. The patient has improved with his swallow function and oral intake. He will remain on Dysphagia II diet level and honey consistency liquids due to decreased bolus management and delayed swallow onset. Barriers to Learning The patient has dementia Speech Short Term Goals Short Term Goals Short Term Goals 1) The patient will tolerate the least restrictive diet level without s/s of aspiration at 90% or greater. 2) The patient will utilize compensatory strategies as trained with 90% or greater given minimal cues. Speech Model And Mold Maker Goals Model And Mold Maker Goals The patient will maintain adequate nutrition/hydration via safe effective swallow function. Speech-Plan Patient/Family Goals Patient/Family Goals: The patient will return to the jail upon discharge. Treatment Plan Speech Therapy Treatment Plan: Continue Plan of Care The patient will receive skilled dysphagia therapy. Treatment Duration: Jun 23, 2019 Frequency: 5 times per week Estimated Hrs Per Day: .25 hour per day Rehab Potential: Fair Barriers to Learning: Patient has dementia Pt/Family Agrees to Plan: Yes Safety Risks/Education Teaching Recipient: Patient Teaching Methods: Discussion Response to Teaching: Verbalize Understanding Education Topics Provided: Safety of oral intake and diet level. Time Speech Therapy Time In: 13:00 Speech Therapy Time Out: 13:15 Total Billed Time: 15 Billed Treatment Time Laura KURT Donato Jun 16, 2019 13:39
--- NOTE | 2019-06-16 14:06 | Occupational Ther Daily Note ---
OT Current Status-Daily Note Subjective Pt seen in bed. Pt no c/o pain, agreeable to therapy services. Mental Status/Objective Patient Orientation: Person, Place, Situation Therapy Code Descriptions/Definitions Functional [place] Measure: 0=Not Assessed/NA 4=Minimal Assistance 1=Total Assistance 5=Supervision or Setup 2=Maximal Assistance 6=Modified [place] 3=Moderate Assistance 7=Complete [place] Attachments: Butts Catheter, Telemetry ADL-Treatment Therapy Code Descriptions/Definitions Functional [place] Measure: 0=Not Assessed/NA 4=Minimal Assistance 1=Total Assistance 5=Supervision or Setup 2=Maximal Assistance 6=Modified [place] 3=Moderate Assistance 7=Complete [place] Therapy Quality Codes: 6 Independent with activity with or without an assistive device 5 Patient requires set up or clean up by helper. Patient completes activity by themselves 4 Supervision or touching assist (CGA). [place] provide cues , steadying assist 3 The helper provides less than half the effort to complete the activity 2 The helper provides more than half the effort to complete the activity 1 Dependent. The helper does all the effort to complete an activity 7 Patient refused to complete or attempt activity 9 The patient did not perform the activity before the current illness or injury 88 Not attempted due to Medical conditions or safety concerns Grooming (FIM): 5 (Pt completed hand hygiene, face washing, oral hygiene, and hair brushing with s/u.) Oral Hygiene (QC): 5 (s/u) On/Off Footwear (QC): 5 (Pt completed shoe donning with min cues ) Transfers (B, C, W/C) (FIM): 4 (Pt required min A for sit to stand from EOB. Pt used FWW- required cues for safe sit to stand hand placement) Education OT Patient Education: Correct positioning, Modified ADL techniques, Purpose of tx/functional activities, Rehab process, Safety issues, Transfer techniques Teaching Recipient: Patient Teaching Methods: Demonstration, Discussion Response to Teaching: Verbalize Understanding, Return Demonstration OT Short Term Goals Short Term Goals Bathing(FIM): 4 Upper Body Dressing(FIM): 3 Toileting(FIM): 4 1=Demonstrate adherence to instructed precautions during ADL tasks. 2=Patient will verbalize/demonstrate understanding of assistive devices/modifications for ADL. 3=Patient will improve strength/tolerance for activity to enable patient to perform ADL's. OT [facility] Goals Gelatin Maker Utility Goals Eating (FIM): 7 Eating (QC): 6 Groomin Oral Hygiene (QC): 6 Bathing(FIM): 5 Shower/Bathe Self (QC): 5 Upper Body Dressing(FIM): 5 Upper Body Dressing (QC): 4 Lower Body Dressing(FIM): 5 Lower Body Dressing (QC): 4 On/Off Footwear (QC): 7 Toileting(FIM): 6 Toileting Hygiene (QC): 6 Transfers (B,C,W/C) (FIM): 6 Toilet/Commode Transfer(FIM): 6 Toilet/Commode Transfer (QC): 6 Tub Transfer(FIM): 5 Shower Transfer(FIM): 5 Additional Goals: 1-Demonstrate ADL Tasks, 2-Verbalize Understanding, 3-ImproveStrength/[place] 1=Demonstrate adherence to instructed precautions during ADL tasks. 2=Patient will verbalize/demonstrate understanding of assistive devices/modifications for ADL. 3=Patient will improve strength/tolerance for activity to enable patient to perform ADL's. OT Education/Plan Problem List/Assessment Assessment: Decreased Activ Tolerance, Decreased Safety Aware Discharge Recommendations Plan/Recommendations: Continue POC Therapy Discharge Recommendati: 24 Hour Supervision Treatment Plan/Plan of Care Treatment,Training & Education: Yes Patient would benefit from OT for education, treatment and training to promote independence in ADL's, mobility, safety and/or upper extremity function for ADL's. Plan of Care: ADL Retraining, Functional Mobility, Group Exercise/Act as Ind, UE Funct Exercise/Act Frequency: 5 times per week Estimated Hrs Per Day: .25 hour per day Agreement: Yes Rehab Potential: Fair Time/GCodes Start Time: 11:20 Stop Time: 11:35 Total Time Billed (hr/min): 15 Billed Treatment Time 1, ADL 15 VIKA CHASE OTR Jun 16, 2019 14:06
--- NOTE | 2019-06-16 15:02 | NUR ---
admitted to swing bed status
[2019-06-16 15:55] VITALS: BP 158/78
[2019-06-16] MEDS: KCL 20 MEQ TAB (K-DUR) PO SCH (17:12)
[2019-06-16 17:36] VITALS: BP 158/78
[2019-06-16] MEDS ORDERED: MEROPENEM 500 MG in WATER (STERILE) FOR INJECTION 10 ML IV SCH (18:00)
[2019-06-16] MEDS: MELATONIN 3 MG TABLET PO SCH (20:36)
[2019-06-16] MEDS: NORTRIPTYLINE 25 MG (PAMELOR) CAP PO SCH (20:36)
[2019-06-16] MEDS: doxAzosin 4 MG (CARDURA) TAB PO SCH (20:36)
[2019-06-16] MEDS: ALPRAZolam 0.25 MG (XANAX) TAB PO SCH (20:36)
[2019-06-16] MEDS: meTOprolol TARTRATE 25 MG (LOPRESSOR) TABLET PO SCH (20:36)
[2019-06-17] MEDS: MEROPENEM 500 MG in WATER (STERILE) FOR INJECTION 10 ML IV SCH ×2 (04:26→15:19)
[2019-06-17 05:28] VITALS: BP 151/78
[2019-06-17] MEDS: LACTOBACILLUS ACIDOPHILUS (PROBIOTIC) CAPSULE PO SCH ×3 (06:17→16:54)
[2019-06-17] MEDS: meTOprolol TARTRATE 25 MG (LOPRESSOR) TABLET PO SCH ×2 (08:20→21:13)
[2019-06-17] MEDS: APIXABAN 2.5 MG (ELIQUIS) TABLET PO SCH ×2 (11:29→21:12)
[2019-06-17] MEDS: FAMOTIDINE 20 MG (PEPCID) TABLET PO SCH (11:29)
--- NOTE | 2019-06-17 12:09 | Physical Therapy Daily Note ---
PT Daily Note-Current Subjective Pt agreeable, denied pain. Mental Status Patient Orientation: Confused Transfers Therapy Code Descriptions/Definitions Functional [place] Measure: 0=Not Assessed/NA 4=Minimal Assistance 1=Total Assistance 5=Supervision or Setup 2=Maximal Assistance 6=Modified [place] 3=Moderate Assistance 7=Complete [place] Therapy Quality Codes: 6 Independent with activity with or without an assistive device 5 Patient requires set up or clean up by helper. Patient completes activity by themselves 4 Supervision or touching assist (CGA). [place] provide cues , steadying assist 3 The helper provides less than half the effort to complete the activity 2 The helper provides more than half the effort to complete the activity 1 Dependent. The helper does all the effort to complete an activity 7 Patient refused to complete or attempt activity 9 The patient did not perform the activity before the current illness or injury 88 Not attempted due to Medical conditions or safety concerns Weight Bearing Right Lower Extremity: Right Weight Bearing/Tolerated Left Lower Extremity: Left Weight Bearing/Tolerated Treatments Pt transfers out of bed mod (I). Pt amb with fww x 40ft in room. Pt up in chair with call light and breakfast set up in front of him. Pt followed all vc's and instruction correctly. Assessment Current Status: Fair Progress Pt la nena well. Pt steady on feet. Incont of bladder, gown changed. Pt up in chair with ambu alarm activated and breakfast in front of him. all needs met and call light in reach. PT [facility] Goals [facility]iary Goals PT [facility] Goals Time Frame: Jun 23, 2019 Transfers (B,C,W/C) (FIM): 5 Sit to Lying (QC): 4 Lying-Sitting on Side/Bed(QC): 4 Sit to Stand (QC): 4 Rollin Roll Left to Right (QC): 4 Chair/[id number]-Hplmv Xfer(QC): 4 Gait (FIM): 5 Distance: 150' Walk 10 feet (QC): 4 Walk 50ft with 2 Turns (QC): 4 Walk 150 ft (QC): 4 Gait Level of Assist: 5 Gait Assistive Device: FWW PT Plan Treatment/Plan Treatment Plan: Continue Plan of Care Treatment Plan: Bed Mobility, Education, Functional Activity [place], Functional Strength, Gait, Safety, Therapeutic Exercise Treatment Duration: Jun 23, 2019 Frequency: 6 times per week Estimated Hrs Per Day: .25 hour per day Patient and/or Family Agrees t: Yes Time/GCodes Time In: 945 Time Out: 1005 Total Billed Treatment Time: 20 Total Billed Treatment 1, gait 20min ANGUS BROOKS CPTA Jun 17, 2019 12:09
[2019-06-17] MEDS: KCL 20 MEQ TAB (K-DUR) PO SCH (16:54)
--- NOTE | 2019-06-17 16:58 | NUR ---
Daughter called this afternoon wanting to know how long her dad would be on IV antibiotics, she is trying to make arrangements to be here when he is dicharged back to his facility and she said she would be able to take him as long as she has a heads up because she lives in [place].
[2019-06-17 17:32] VITALS: BP 124/75
[2019-06-17] MEDS: doxAzosin 4 MG (CARDURA) TAB PO SCH (21:11)
[2019-06-17] MEDS: NORTRIPTYLINE 25 MG (PAMELOR) CAP PO SCH (21:12)
[2019-06-17] MEDS: ALPRAZolam 0.25 MG (XANAX) TAB PO SCH (21:12)
[2019-06-17] MEDS: MELATONIN 3 MG TABLET PO SCH (21:13)
--- NOTE | 2019-06-18 | NUR ---
Report received from Shelbie Del Castillo RN.
[2019-06-18] MEDS: MEROPENEM 500 MG in WATER (STERILE) FOR INJECTION 10 ML IV SCH ×2 (03:53→16:16)
[2019-06-18 06:00] VITALS: BP 152/84
[2019-06-18] MEDS: LACTOBACILLUS ACIDOPHILUS (PROBIOTIC) CAPSULE PO SCH ×3 (06:15→16:15)
[2019-06-18] MEDS: meTOprolol TARTRATE 25 MG (LOPRESSOR) TABLET PO SCH ×2 (08:28→21:02)
[2019-06-18] MEDS: APIXABAN 2.5 MG (ELIQUIS) TABLET PO SCH ×2 (11:23→21:01)
[2019-06-18] MEDS: FAMOTIDINE 20 MG (PEPCID) TABLET PO SCH (11:23)
--- NOTE | 2019-06-18 12:41 | Progress Note - Hospitalist ---
Subjective HPI/CC On Admission Date Seen by Provider: Jun 18, 2019 Time Seen by Provider: 12:35 Subjective/Events-last exam Pt reports feeling well. No complaints. Daughter at bedside with questions about PT availability and if she can walk pt. Also has questions about optimal changing of briefs, high intensity cranberry pills, and prevention of UTIs. Objective Exam Vital Signs Vital Signs Date Time Temp Pulse Resp B/P (MAP) Pulse Ox O2 Delivery O2 Flow Rate FiO2 06/18/19 09:00 Room Air 06/18/19 06:00 98.7 94 20 152/84 (106) 93 Capillary Refill : General Appearance: No Apparent Distress, WD/WN Respiratory: No Accessory Muscle Use, No Respiratory Distress Neurologic/Psychiatric: Alert, Oriented x3 Results/Procedures Lab Patient resulted labs reviewed. Assessment/Plan Assessment and Plan Assess & Plan/Chief Complaint ESBL E coli UTI Continue on Merrem per sensitivities Await fosfomycin results Debility Continue PT/OT I called and asked rehab- PT will be here tomorrow to work with patient Diagnosis/Problems Diagnosis/Problems (1) UTI due to extended-spectrum beta lactamase (ESBL) producing Escherichia coli Status: Acute Clinical Quality Measures DVT/VTE Risk/Contraindication: Risk Factor Score Per Nursin AMIRA IVY MD Jun 18, 2019 12:41 pm
--- NOTE | 2019-06-18 15:29 | NUR ---
PATIENT WENT OUTSIDE TO [address] WITH DAUGHTER PER W/C
[2019-06-18] MEDS: KCL 20 MEQ TAB (K-DUR) PO SCH (16:15)
[2019-06-18 18:00] VITALS: BP 161/95
[2019-06-18 20:57] VITALS: BP 146/83
[2019-06-18] MEDS: NORTRIPTYLINE 25 MG (PAMELOR) CAP PO SCH (21:02)
[2019-06-18] MEDS: doxAzosin 4 MG (CARDURA) TAB PO SCH (21:03)
[2019-06-18] MEDS: ALPRAZolam 0.25 MG (XANAX) TAB PO SCH (21:03)
[2019-06-18] MEDS: MELATONIN 3 MG TABLET PO SCH (21:03)
[2019-06-19 05:00] VITALS: BP 186/86
[2019-06-19] MEDS: MEROPENEM 500 MG in WATER (STERILE) FOR INJECTION 10 ML IV SCH ×2 (05:05→16:37)
[2019-06-19] MEDS: LACTOBACILLUS ACIDOPHILUS (PROBIOTIC) CAPSULE PO SCH ×3 (05:07→17:13)
[2019-06-19 08:06] VITALS: BP 186/86
[2019-06-19] MEDS: meTOprolol TARTRATE 25 MG (LOPRESSOR) TABLET PO SCH ×2 (08:36→20:09)
[2019-06-19 08:48] VITALS: BP 147/76
--- NOTE | 2019-06-19 11:25 | Occupational Ther Daily Note ---
OT Current Status-Daily Note Subjective Pt seen in bed, no c/o pain. Pt's daughter present through tx session, pt agreeable to tx session. Mental Status/Objective Patient Orientation: Person, Place, Situation Therapy Code Descriptions/Definitions Functional [place] Measure: 0=Not Assessed/NA 4=Minimal Assistance 1=Total Assistance 5=Supervision or Setup 2=Maximal Assistance 6=Modified [place] 3=Moderate Assistance 7=Complete [place] Attachments: IV IV covered during shower ADL-Treatment Therapy Code Descriptions/Definitions Functional [place] Measure: 0=Not Assessed/NA 4=Minimal Assistance 1=Total Assistance 5=Supervision or Setup 2=Maximal Assistance 6=Modified [place] 3=Moderate Assistance 7=Complete [place] Therapy Quality Codes: 6 Independent with activity with or without an assistive device 5 Patient requires set up or clean up by helper. Patient completes activity by themselves 4 Supervision or touching assist (CGA). [place] provide cues , steadying assist 3 The helper provides less than half the effort to complete the activity 2 The helper provides more than half the effort to complete the activity 1 Dependent. The helper does all the effort to complete an activity 7 Patient refused to complete or attempt activity 9 The patient did not perform the activity before the current illness or injury 88 Not attempted due to Medical conditions or safety concerns Eating (FIM): 7 Eating (QC): 6 Grooming (FIM): 5 (s/u for hair brushing) Bathing (FIM): 4 (Pt required moderate cueing for body washing. Pt required assist for bottom washing for thoroughness. ) Shower/Bathe Self (QC): 3 Upper Body (FIM): 5 (s/u) Upper Body Dressing (QC): 5 Lower Body Dressing (FIM): 3 (required assist for threading 1 LE during task. Pt educated on leg positioning to complete with more IND) Lower Body Dressing (QC): 3 On/Off Footwear (QC): 6 (increased time) Shower Transfer(FIM): 5 (SBA and cues for safety) Other Treatment Pt ambulated with FWW from EOB to bathroom. Pt required cues during activities due to processing. Pt completed showering task. Pt's daughter educated on clothing and no need for AE at this time. Education OT Patient Education: Correct positioning, Energy conservation, Instructions to caregiver, Modified ADL techniques, Purpose of tx/functional activities, Safety issues, Transfer techniques Teaching Recipient: Patient, Family Teaching Methods: Demonstration, Discussion Response to Teaching: Verbalize Understanding, Return Demonstration Pt and daughter educated about dressing tasks and modified dressing techniques for low energy. Pt's daughter educated about cues for dressing. OT Short Term Goals Short Term Goals Bathing(FIM): 4 (goal met) Upper Body Dressing(FIM): 3 (goal met) Toileting(FIM): 4 1=Demonstrate adherence to instructed precautions during ADL tasks. 2=Patient will verbalize/demonstrate understanding of assistive devices/modifications for ADL. 3=Patient will improve strength/tolerance for activity to enable patient to perform ADL's. OT Residential Goals Blanket Maker Goals Eating (FIM): 7 Eating (QC): 6 Groomin Oral Hygiene (QC): 6 Bathing(FIM): 5 Shower/Bathe Self (QC): 5 Upper Body Dressing(FIM): 5 Upper Body Dressing (QC): 4 Lower Body Dressing(FIM): 5 Lower Body Dressing (QC): 4 On/Off Footwear (QC): 7 Toileting(FIM): 6 Toileting Hygiene (QC): 6 Transfers (B,C,W/C) (FIM): 6 Toilet/Commode Transfer(FIM): 6 Toilet/Commode Transfer (QC): 6 Tub Transfer(FIM): 5 Shower Transfer(FIM): 5 Additional Goals: 1-Demonstrate ADL Tasks, 2-Verbalize Understanding, 3- ImproveStrength/[place] 1=Demonstrate adherence to instructed precautions during ADL tasks. 2=Patient will verbalize/demonstrate understanding of assistive devices/modifications for ADL. 3=Patient will improve strength/tolerance for activity to enable patient to perform ADL's. OT Education/Plan Problem List/Assessment Assessment: Decreased Activ Tolerance, Decreased Safety Aware, Decreased UE Strength, Impaired Cognition, Impaired Funct Balance, Impaired I ADL's, Impaired Self-Care Skills Discharge Recommendations Plan/Recommendations: Continue POC Therapy Discharge Recommendati: Other, See Comments (return to [facility] Equpiment Recommendations-D/C: Bath Chair Treatment Plan/Plan of Care Treatment,Training & Education: Yes Patient would benefit from OT for education, treatment and training to promote independence in ADL's, mobility, safety and/or upper extremity function for ADL's. Plan of Care: ADL Retraining, Functional Mobility, Group Exercise/Act as Ind, UE Funct Exercise/Act Frequency: 5 times per week Estimated Hrs Per Day: .25 hour per day Agreement: Yes Rehab Potential: Fair Time/GCodes Start Time: 10:35 Stop Time: 11:15 Total Time Billed (hr/min): 40 Billed Treatment Time 1 ADL 40 VIKA CHASE OTR Jun 19, 2019 11:25
[2019-06-19] MEDS: APIXABAN 2.5 MG (ELIQUIS) TABLET PO SCH ×2 (12:16→20:09)
[2019-06-19] MEDS: FAMOTIDINE 20 MG (PEPCID) TABLET PO SCH (12:16)
--- NOTE | 2019-06-19 13:30 | Progress Note - Hospitalist ---
Subjective HPI/CC On Admission Date Seen by Provider: Jun 19, 2019 Time Seen by Provider: 08:45 Subjective/Events-last exam He denies any current complaints or concerns. He denies any chest pain or shortness of breath. He denies any recent chills. He denies any nausea and vomiting. He denies any abdominal pain. Objective Exam Vital Signs Vital Signs Date Time Temp Pulse Resp B/P (MAP) Pulse Ox O2 Delivery O2 Flow Rate FiO2 06/19/19 08:48 98.0 101 20 147/76 (99) 94 Room Air Capillary Refill : General Appearance: No Apparent Distress, WD/WN, Other (Sitting in bedside chair) HEENT: PERRL/EOMI, Pharynx Normal Neck: Normal Inspection, Supple Respiratory: Lungs Clear, Normal Breath Sounds, No Respiratory Distress Cardiovascular: Regular Rate, Rhythm, No Edema, No Murmur Gastrointestinal: Normal Bowel Sounds, Non Tender, Soft Extremity: Normal Inspection, No Pedal Edema Neurologic/Psychiatric: Alert; No Disoriented Skin: Normal Color, Warm/Dry Results/Procedures Lab Patient resulted labs reviewed. Assessment/Plan Assessment and Plan Assess & Plan/Chief Complaint ESBL Escherichia coli UTI Continue Merrem Fosfomycin susceptibility pending Dysphasia Pured with nectar/honey thick diet ordered Debility PT/OT consulted Diagnosis/Problems Diagnosis/Problems (1) UTI due to extended-spectrum beta lactamase (ESBL) producing Escherichia coli Status: Acute (2) Dysphagia Status: Chronic (3) Debility Status: Chronic Clinical Quality Measures DVT/VTE Risk/Contraindication: Risk Factor Score Per Nursin DECLAN PEREZ MD Jun 19, 2019 13:30
--- NOTE | 2019-06-19 13:58 | Physical Therapy Daily Note ---
PT Daily Note-Current Subjective States that he is doing okay. Pain Numeric Pain Scale: 0-No Pain Transfers Therapy Code Descriptions/Definitions Functional [place] Measure: 0=Not Assessed/NA 4=Minimal Assistance 1=Total Assistance 5=Supervision or Setup 2=Maximal Assistance 6=Modified [place] 3=Moderate Assistance 7=Complete [place] Therapy Quality Codes: 6 Independent with activity with or without an assistive device 5 Patient requires set up or clean up by helper. Patient completes activity by themselves 4 Supervision or touching assist (CGA). [place] provide cues , steadying assist 3 The helper provides less than half the effort to complete the activity 2 The helper provides more than half the effort to complete the activity 1 Dependent. The helper does all the effort to complete an activity 7 Patient refused to complete or attempt activity 9 The patient did not perform the activity before the current illness or injury 88 Not attempted due to Medical conditions or safety concerns Transfers (B, C, W/C) (FIM): 6 Scootin Rollin Supine to/from Sit: 6 Weight Bearing Right Lower Extremity: Right Weight Bearing/Tolerated Left Lower Extremity: Left Weight Bearing/Tolerated Gait Training Does the Patient Walk?: Yes Gait (FIM): 5 Distance (FIM): 3=150 ft Distance: 300 Gait Level of Assist: 5 Gait Persons Needed: 1 Gait Assistive Device: FWW Exercises Supine Ex: LE Protocol Supine Reps: 15 Assessment Current Status: Excellent Progress The patient did well with treatment. PT High School Library Media Specialist Goals [facility] Goals PT [facility] Goals Time Frame: Jun 23, 2019 Transfers (B,C,W/C) (FIM): 5 Sit to Lying (QC): 4 Lying-Sitting on Side/Bed(QC): 4 Sit to Stand (QC): 4 Rollin Roll Left to Right (QC): 4 Chair/Dqe-jb-Fnqbc Xfer(QC): 4 Gait (FIM): 5 Distance: 150' Walk 10 feet (QC): 4 Walk 50ft with 2 Turns (QC): 4 Walk 150 ft (QC): 4 Gait Level of Assist: 5 Gait Assistive Device: FWW PT Plan Treatment/Plan Treatment Plan: Continue Plan of Care Treatment Plan: Bed Mobility, Education, Functional Activity [place], Functional Strength, Gait, Safety, Therapeutic Exercise Treatment Duration: Jun 23, 2019 Frequency: 6 times per week Estimated Hrs Per Day: .25 hour per day Patient and/or Family Agrees t: Yes Time/GCodes Time In: 1340 Time Out: 1355 Total Billed Treatment Time: 15 Total Billed Treatment 1, FA x 15 ELENA ALEMAN PT Jun 19, 2019 13:58
[2019-06-19] MEDS: KCL 20 MEQ TAB (K-DUR) PO SCH (17:15)
[2019-06-19 17:59] VITALS: BP 153/87
[2019-06-19 20:08] VITALS: BP 146/88
[2019-06-19] MEDS: ALPRAZolam 0.25 MG (XANAX) TAB PO SCH (20:09)
[2019-06-19] MEDS: NORTRIPTYLINE 25 MG (PAMELOR) CAP PO SCH (20:09)
[2019-06-19] MEDS: doxAzosin 4 MG (CARDURA) TAB PO SCH (20:09)
[2019-06-19] MEDS: MELATONIN 3 MG TABLET PO SCH (20:09)
[2019-06-20] MEDS: LACTOBACILLUS ACIDOPHILUS (PROBIOTIC) CAPSULE PO SCH ×3 (04:33→16:08)
[2019-06-20] MEDS: MEROPENEM 500 MG in WATER (STERILE) FOR INJECTION 10 ML IV SCH ×2 (04:33→16:09)
[2019-06-20 05:21] LABS: HEMOGLOBIN 12.1 G/DL (13.3-17.7); MEAN PLATELET VOLUME 9.5 FL (7.4-10.4); RED CELL DISTRIBUTION WIDTH 12.9 % (10.0-14.5); WHITE BLOOD COUNT 8.2 10^3/uL (4.3-11.0)
[2019-06-20 05:34] VITALS: BP 119/73
[2019-06-20 05:45] LABS: CALCIUM 9.6 MG/DL (8.5-10.1); CREATININE SERUM 2.45 MG/DL (0.60-1.30); POTASSIUM 4.6 MMOL/L (3.6-5.0)
[2019-06-20] MEDS: meTOprolol TARTRATE 25 MG (LOPRESSOR) TABLET PO SCH ×2 (08:43→20:13)
--- NOTE | 2019-06-20 10:15 | NUR ---
CM DISCHARGE PLANNING: Patient will discharge back to [facility] tomorrow 06/21 after the completion of his IV abx. Max indicated that his daughter Jen will transport him. I f/u with Jen et she reports that she can transport him if he is able to be discharged before noon. I will f/u with staff et doctor to help ensure that he is able to do that. Jen had questions for our Speech therapist about Max's diet on discharge. [facility] will come and visit with Jen after 11 a.m. today to answer any questions or concerns. Jen denied any other needs or concerns at this time.
--- NOTE | 2019-06-20 11:35 | NUR ---
Notice of Medicare Non Coverage presented, reviewed, signed and placed in patient chart. Patient voiced no intention to appeal and deny any needs or further questions at this time.
--- NOTE | 2019-06-20 11:36 | Occupational Ther Daily Note ---
OT Current Status-Daily Note Subjective Pt seen upright in chair, no c/o pain. Pt agreeable to therapy tx session. Pt states need for bathroom. Mental Status/Objective Patient Orientation: Normal For Age Therapy Code Descriptions/Definitions Functional [place] Measure: 0=Not Assessed/NA 4=Minimal Assistance 1=Total Assistance 5=Supervision or Setup 2=Maximal Assistance 6=Modified [place] 3=Moderate Assistance 7=Complete [place] Attachments: IV ADL-Treatment Therapy Code Descriptions/Definitions Functional [place] Measure: 0=Not Assessed/NA 4=Minimal Assistance 1=Total Assistance 5=Supervision or Setup 2=Maximal Assistance 6=Modified [place] 3=Moderate Assistance 7=Complete [place] Therapy Quality Codes: 6 Independent with activity with or without an assistive device 5 Patient requires set up or clean up by helper. Patient completes activity by themselves 4 Supervision or touching assist (CGA). [place] provide cues , steadying assist 3 The helper provides less than half the effort to complete the activity 2 The helper provides more than half the effort to complete the activity 1 Dependent. The helper does all the effort to complete an activity 7 Patient refused to complete or attempt activity 9 The patient did not perform the activity before the current illness or injury 88 Not attempted due to Medical conditions or safety concerns Grooming (FIM): 6 (Use of FWW to sink to wash hands and brush teeth with increased time.) Oral Hygiene (QC): 6 (increased time) Lower Body Dressing (FIM): 3 (Pt required assist gathering items, doffed brief IND, required assist threading 1 leg through pant hole and cues for safety/ sequencing. ) Lower Body Dressing (QC): 3 On/Off Footwear (QC): 4 (Min A for 1 heel in shoe) Toileting (FIM): 2 (Pt required assist with thorough wiping post-BM and threading leg through pant leg. ) Toileting Hygiene (QC): 2 Transfers (B, C, W/C) (FIM): 5 (SBA for safety and cueing) Toilet/Commode Transfer (FIM): 5 (safety education with FWW use during transfers) Toilet Transfer (QC): 4 Other Treatment Pt completed toileting routine with increased cues for safety, initiation, and sequencing. Pt required cues to point privates into toilet while sitting, unaware of urinating on LE dressing. Pt completed with cues. Pt sit to stand from toilet with FWW, completed hand hygiene and tooth brushing with no cues. Pt ambulated with FWW to recliner, left in room with chair alarm on, call light within reach, and OUTREACH MANAGER within room. Education OT Patient Education: Correct positioning, Energy conservation, Modified ADL techniques, Rehab process, Safety issues, Transfer techniques Teaching Recipient: Patient Teaching Methods: Demonstration, Discussion Response to Teaching: Verbalize Understanding, Return Demonstration Pt educated on energy conservation during LE dressing, safety with FWW during transfer to toilet. OT Short Term Goals Short Term Goals Bathing(FIM): 4 (goal met) Upper Body Dressing(FIM): 3 (goal met) Toileting(FIM): 4 1=Demonstrate adherence to instructed precautions during ADL tasks. 2=Patient will verbalize/demonstrate understanding of assistive devices/modifications for ADL. 3=Patient will improve strength/tolerance for activity to enable patient to perform ADL's. OT Intermediate Goals Intermediate Goals Eating (FIM): 7 Eating (QC): 6 Groomin Oral Hygiene (QC): 6 Bathing(FIM): 5 Shower/Bathe Self (QC): 5 Upper Body Dressing(FIM): 5 Upper Body Dressing (QC): 4 Lower Body Dressing(FIM): 5 Lower Body Dressing (QC): 4 On/Off Footwear (QC): 7 Toileting(FIM): 6 Toileting Hygiene (QC): 6 Transfers (B,C,W/C) (FIM): 6 Toilet/Commode Transfer(FIM): 6 Toilet/Commode Transfer (QC): 6 Tub Transfer(FIM): 5 Shower Transfer(FIM): 5 Additional Goals: 1-Demonstrate ADL Tasks, 2-Verbalize Understanding, 3- ImproveStrength/Concepc[place] 1=Demonstrate adherence to instructed precautions during ADL tasks. 2=Patient will verbalize/demonstrate understanding of assistive devices/modifications for ADL. 3=Patient will improve strength/tolerance for activity to enable patient to perform ADL's. OT Education/Plan Problem List/Assessment Assessment: Decreased Activ Tolerance, Decreased Safety Aware, Decreased UE Strength, Impaired Funct Balance, Impaired I ADL's, Impaired Self-Care Skills Discharge Recommendations Plan/Recommendations: Continue POC Therapy Discharge Recommendati: Other, See Comments Equpiment Recommendations-D/C: [place] Comment Pt plans to return to previous living, [facility]. Hollis eagle recommended for pt upon d/c. Treatment Plan/Plan of Care Treatment,Training & Education: Yes Patient would benefit from OT for education, treatment and training to promote independence in ADL's, mobility, safety and/or upper extremity function for ADL's. Plan of Care: ADL Retraining, Functional Mobility, Group Exercise/Act as Ind, UE Funct Exercise/Act Frequency: 5 times per week Estimated Hrs Per Day: .25 hour per day Agreement: Yes Rehab Potential: Fair Time/GCodes Start Time: 11:10 Stop Time: 11:27 Total Time Billed (hr/min): 17 Billed Treatment Time 1, ADL 17 VIKA CHASE OTR Jun 20, 2019 11:36
[2019-06-20] MEDS: FAMOTIDINE 20 MG (PEPCID) TABLET PO SCH (11:46)
[2019-06-20] MEDS: APIXABAN 2.5 MG (ELIQUIS) TABLET PO SCH ×2 (11:46→20:13)
--- NOTE | 2019-06-20 12:16 | Physical Therapy Daily Note ---
PT Daily Note-Current Subjective Patient is in bed and dons pants and shoes with set up only. Patient agrees to PT. Pain Numeric Pain Scale: 0-No Pain Location: No Pain Reported Mental Status Patient Orientation: Confused Transfers Therapy Code Descriptions/Definitions Functional [place] Measure: 0=Not Assessed/NA 4=Minimal Assistance 1=Total Assistance 5=Supervision or Setup 2=Maximal Assistance 6=Modified [place] 3=Moderate Assistance 7=Complete [place] Therapy Quality Codes: 6 Independent with activity with or without an assistive device 5 Patient requires set up or clean up by helper. Patient completes activity by themselves 4 Supervision or touching assist (CGA). [place] provide cues , steadying assist 3 The helper provides less than half the effort to complete the activity 2 The helper provides more than half the effort to complete the activity 1 Dependent. The helper does all the effort to complete an activity 7 Patient refused to complete or attempt activity 9 The patient did not perform the activity before the current illness or injury 88 Not attempted due to Medical conditions or safety concerns Transfers (B, C, W/C) (FIM): 5 Scootin Rollin Roll Left to Right (QC): 6 Supine to/from Sit: 6 Sit to/from Stand: 5 Sit to Lying (QC): 6 Sit to Stand (QC): 5 Chair/Sum-up-Ysuzb Xfer(QC): 5 Bed to/from Chair: 5 SBA for safety Weight Bearing Right Lower Extremity: Right Weight Bearing/Tolerated Left Lower Extremity: Left Weight Bearing/Tolerated Gait Training Does the Patient Walk?: Yes Gait (FIM): 5 Distance (FIM): 3=150 ft Distance: >500' Walk 10 feet (QC): 5 Walk 50 ft with 2 Turns(QC): 5 Walk 150 ft (QC): 5 Gait Level of Assist: 5 Gait Assistive Device: FWW extended UE's/safe and functional gait sequence Exercises Supine Ex: Ankle pumps, Quad Set, Heel Slides Supine Reps: 15 Seated Therapy Exercises: Ankle pumps, Long arc quads, Hip flexion Seated Reps: 15 Assessment Patient tolerated treatment well and is up in recliner with chair alarm activated and call light in hand. PT Jail Goals Ear Flap Binder Goals PT Jail Goals Time Frame: Jun 23, 2019 Transfers (B,C,W/C) (FIM): 5 Sit to Lying (QC): 4 Lying-Sitting on Side/Bed(QC): 4 Sit to Stand (QC): 4 Rollin Roll Left to Right (QC): 4 Chair/Fga-hc-Njjyk Xfer(QC): 4 Gait (FIM): 5 Distance: 150' Walk 10 feet (QC): 4 Walk 50ft with 2 Turns (QC): 4 Walk 150 ft (QC): 4 Gait Level of Assist: 5 Gait Assistive Device: FWW PT Plan Treatment/Plan Treatment Plan: Continue Plan of Care Treatment Plan: Bed Mobility, Education, Functional Activity [place], Functional Strength, Gait, Safety, Therapeutic Exercise Treatment Duration: Jun 23, 2019 Frequency: 6 times per week Estimated Hrs Per Day: .25 hour per day Patient and/or Family Agrees t: Yes Time/GCodes Time In: 1015 Time Out: 1038 Total Billed Treatment Time: 23 Total Billed Treatment 1 visit EX 14 min GT 9 min TESFAYE GIRALDO PT Jun 20, 2019 12:16
--- NOTE | 2019-06-20 13:30 | Speech Therapy Daily Note ---
Speech Daily Progress Note Subjective Date Seen by Provider: Jun 20, 2019 Time Seen by Provider: 00:15 The patient states he is ready to return to his assisted living facility. Objective The patient was upgraded to regular diet level, however he will continue on honey consistency liquids. The patient utilized compensatory strategies as trained with 80% accuracy given min to mod cues. Assessment Assessment Current Status: Good Progress Treatment Plan Continue Plan of Care Speech Short Term Goals Short Term Goals Short Term Goals 1) The patient will tolerate the least restrictive diet level without s/s of aspiration at 90% or greater. 2) The patient will utilize compensatory strategies as trained with 90% or greater given minimal cues. Speech Residential Goals Press Tender Long [employer]s Goals The patient will maintain adequate nutrition/hydration via safe effective swallow function. Speech-Plan Patient/Family Goals Patient/Family Goals: The patient is scheduled to return to [facility] tomorrow. Treatment Plan Speech Therapy Treatment Plan: Continue Plan of Care The patient was trialed with thin liquids, however the patient coughed with each sip (x2). Treatment Duration: Jun 21, 2019 Frequency: 5 times per week Estimated Hrs Per Day: .25 hour per day Rehab Potential: Fair Barriers to Learning: Patient has mild dementia Pt/Family Agrees to Plan: Yes Safety Risks/Education Teaching Recipient: Patient Teaching Methods: Demonstration, Discussion Response to Teaching: Verbalize Understanding, Return Demonstration Education Topics Provided: Continued safety with all oral intake. Time Speech Therapy Time In: 11:25 Speech Therapy Time Out: 11:40 Total Billed Time: 15 Billed Treatment Time 1, KURT Cisneros Jun 20, 2019 13:30
--- NOTE | 2019-06-20 15:04 | Progress Note - Hospitalist ---
Subjective HPI/CC On Admission Date Seen by Provider: Jun 20, 2019 Time Seen by Provider: 09:00 UTI Subjective/Events-last exam His new complaints or concerns today. He denies knee pain. He denies any fevers or chills. He is watching television. Objective Exam Vital Signs Vital Signs Date Time Temp Pulse Resp B/P (MAP) Pulse Ox O2 Delivery O2 Flow Rate FiO2 06/20/19 08:50 Room Air 06/20/19 08:45 96 06/20/19 05:34 97.8 98 22 119/73 (88) Capillary Refill : Less Than 3 Seconds General Appearance: No Apparent Distress, WD/WN Respiratory: Lungs Clear, Normal Breath Sounds, No Respiratory Distress Cardiovascular: Regular Rate, Rhythm, No Edema, No Murmur Gastrointestinal: Normal Bowel Sounds, Non Tender, Soft Neurologic/Psychiatric: Alert; No Disoriented Skin: Normal Color, Warm/Dry Results/Procedures Lab Laboratory Tests 06/20/19 04:29 Patient resulted labs reviewed. Assessment/Plan Assessment and Plan Assess & Plan/Chief Complaint ESBL Escherichia coli UTI Continue Merrem, course to be completed tomorrow Dysphasia Pured with nectar/honey thick diet ordered Debility PT/OT consulted, refusing Diagnosis/Problems Diagnosis/Problems (1) UTI due to extended-spectrum beta lactamase (ESBL) producing Escherichia coli Status: Acute (2) Dysphagia Status: Chronic (3) Debility Status: Chronic Clinical Quality Measures DVT/VTE Risk/Contraindication: Risk Factor Score Per Nursin DECLAN PEREZ MD Jun 20, 2019 15:04
[2019-06-20] MEDS ORDERED: ALPR0.5T7 PO ×2 (15:08→16:20)
--- NOTE | 2019-06-20 15:10 | Discharge Inst-Simple/Standard ---
Discharge Inst-Standard Patient Instructions/Follow Up Plan of Care/Instructions/FU: Take medications as prescribed. Follow up with PCP. Activity as Tolerated: Yes Discharge Diet: No Restrictions Return to The Hospital For: fevers, shortness of breath, chest pain, or if you feel like you are getting worse DECLAN PEREZ MD Jun 20, 2019 15:10
[2019-06-20] MEDS: KCL 20 MEQ TAB (K-DUR) PO SCH (16:31)
[2019-06-20 17:43] VITALS: BP 155/87
[2019-06-20] MEDS: MELATONIN 3 MG TABLET PO SCH (20:13)
[2019-06-20] MEDS: NORTRIPTYLINE 25 MG (PAMELOR) CAP PO SCH (20:13)
[2019-06-20] MEDS: ALPRAZolam 0.25 MG (XANAX) TAB PO SCH (20:13)
[2019-06-20] MEDS: doxAzosin 4 MG (CARDURA) TAB PO SCH (20:13)
[2019-06-21] MEDS: MEROPENEM 500 MG in WATER (STERILE) FOR INJECTION 10 ML IV SCH (04:10)
[2019-06-21 05:15] VITALS: BP 120/58
[2019-06-21] MEDS: LACTOBACILLUS ACIDOPHILUS (PROBIOTIC) CAPSULE PO SCH (06:10)
[2019-06-21] MEDS ORDERED: LACT1CAP7 PO (08:04)
[2019-06-21] MEDS: meTOprolol TARTRATE 25 MG (LOPRESSOR) TABLET PO SCH (08:58)
--- NOTE | 2019-06-21 11:18 | Therapy Team Discharge Summary ---
Therapy Discharge Summary Discharge Recommendations Date of Discharge Physical Therapy Patient on SWB due to continued IV for UTI. Upon evaluation patient min assist for sit to stand and CGA for transfers, ambulated 50' with a rolling walker with CGA. Patient has been performing bed mobility and transfer training, balance and endurance training, functional strengthening, gait training, and education. 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 Now, patient performs bed mobility with mod I, transfers with SBA, and can ambulate over 500' with a rolling walker with SBA. Patient is discharging from this facility today and will be discharged from PT at this time. Occupational Therapy Decreased Activ Tolerance, Decreased Safety Aware, Decreased UE Strength, Impaired Funct Balance, Impaired I ADL's, Impaired Self-Care Skills PT Fpc Goals Fpc Goals PT Boilermaker Helper Goals Time Frame: Jun 23, 2019 Transfers (B,C,W/C) (FIM): 5 Sit to Lying (QC): 4 Lying-Sitting on Side/Bed(QC): 4 Sit to Stand (QC): 4 Rollin Chair/Qjq-wp-Acceo Xfer(QC): 4 Gait (FIM): 5 Distance: 150' Walk 50ft with 2 Turns (QC): 4 Walk 150 ft (QC): 4 Gait Level of Assist: 5 Gait Assistive Device: FWW OT Fpc Goals Fpc Goals Eating (FIM): 7 Eating (QC): 6 Groomin Oral Hygiene (QC): 6 Bathing(FIM): 5 Upper Body Dressing(FIM): 5 Lower Body Dressing(FIM): 5 Toileting(FIM): 6 Toileting Hygiene (QC): 6 Transfers (B,C,W/C) (FIM): 6 Toilet/Commode Transfer(FIM): 6 Toilet/Commode Transfer (QC): 6 Tub Transfer(FIM): 5 Shower Transfer(FIM): 5 Additional Goals: 1-Demonstrate ADL Tasks, 2-Verbalize Understanding, 3- ImproveStrength/[place] 1=Demonstrate adherence to instructed precautions during ADL tasks. 2=Patient will verbalize/demonstrate understanding of assistive devices/mod ifications for ADL. 3=Patient will improve strength/tolerance for activity to enable patient to perform ADL's. Speech Fpc Goals Fpc Goals The patient will maintain adequate nutrition/hydration via safe effective swallow function. AMMON BARFIELD PT Jun 21, 2019 11:18
--- NOTE | 2019-06-21 11:26 | Discharge Summary ---
Diagnosis/Chief Complaint Date of Admission Jun 16, 2019 at 10:36 Date of Discharge Discharge Date: Jun 21, 2019 Admission Diagnosis UTI Primary Care Guerrero Dutton DO Discharge Diagnosis ESBL Escherichia coli UTI (1) UTI due to extended-spectrum beta lactamase (ESBL) producing Escherichia coli Status: Resolved (2) Dysphagia Status: Chronic (3) Debility Status: Chronic Discharge Summary Discharge Physical Exam Allergies: Coded Allergies: benazepril (Verified Adverse Reaction, Unknown, cough, 06/13/19) Vitals & I&Os Vital Signs Date Time Temp Pulse Resp B/P (MAP) Pulse Ox O2 Delivery O2 Flow Rate FiO2 06/21/19 05:15 98.1 96 18 120/58 (78) 92 Room Air General Appearance: No Apparent Distress, WD/WN Respiratory: Lungs Clear, Normal Breath Sounds, No Respiratory Distress Cardiovascular: Regular Rate, Rhythm, No Edema, No Murmur Gastrointestinal: Normal Bowel Sounds, Non Tender, Soft Extremity: Normal Inspection, No Pedal Edema Skin: Normal Color, Warm/Dry Neurologic/Psychiatric: Alert; No Disoriented Hospital Course Max Paredes is an 88-year-old male who was admitted with a urinary tract infection. He was diagnosed with an ESBL Escherichia coli UTI. He was treated with meropenem IV. He completed his course and was discharged back to his assisted living facility. He was also treated for dysphagia and was followed by speech therapy while inpatient and will continue outpatient therapy. Labs (last 24 hrs) Patient resulted labs reviewed. Discussion & Recommendations Discharge Planning: <30 minutes discharge planning Discharge Home Medications: Active Scripts Active Acidophilus-Pectin Capsule (Lactobacillus Acidophilus/Pect) 1 Each Capsule 2 Each PO TIDWM 90 Days Alprazolam 0.5 Mg Tablet 0.25 Mg PO HS 7 Days Reported [Mineral Cream] TOP UD PRN APPLY TOPICALLY TO BODY WHEN C/O DRYNESS AND ITCHY Xanax (Alprazolam) 0.25 Mg Tablet 0.25 Mg PO Q12H PRN Triamcinolone Acetonide 0.1% Cream (Triamcinolone Acet) 15 Gm Cr TP DAILY PRN Calmoseptine Ointment (Menthol/Lanolin/Calamine/Znox) 71 Gm Oint TP TID PRN APPLY TO BUTTOCKS Mylanta Suspension (Al Hydrox/Mg Hydrox/Simethicone) 30 Ml Oral.susp 30 Ml PO Q4H PRN Tylenol (Acetaminophen) 325 Mg Tablet 650 Mg PO Q4H PRN Amoxicillin 500 Mg Tablet 2,000 Mg PO UD PRN Melatonin 3 Mg Tablet 3 Mg PO HS Doxazosin Mesylate 4 Mg Tablet 4 Mg PO HS Nortriptyline HCl 25 Mg Capsule 50 Mg PO HS TAKES 2 (25MG) CAPSULES Fish Oil 1,200 mg Fish Oil (Fish Oil/Dha/Epa) 1 Each Capsule 1,200 Mg PO 1200,2000 Os-Dong 500+D3 Caplet (Calcium Carbonate/Vitamin D3) 1 Each Tablet 1 Tab PO 1200,2000 Ascorbic Acid 500 Mg Tablet 1,000 Mg PO 1200,2000 TAKES 2 (500MG) TABLETS Metoprolol Tartrate 25 Mg Tablet 25 Mg PO BID HOLD IF PULSE <60 Eliquis (Apixaban) 2.5 Mg Tablet 2.5 Mg PO 1200,2000 Co Q-10 100 mg Softgel (Ubidecarenone/Vit E Acetate) 1 Each Capsule 100 Mg PO 1700 Fiber-Lax (Calcium Polycarbophil) 625 Mg Tablet 2 Tab PO 1700 Cerovite Advanced Form Tab (Multivitamin/Iron/Folic Acid) 1 Each Tablet 1 Tab PO 1700 Potassium Chloride 20 Meq Tab.er.prt 20 Meq PO 1700 Famotidine 20 Mg Tablet 20 Mg PO 1200 Folic Acid 1 Mg Tablet 1 Mg PO 1200 Vitamin D-3 (Cholecalciferol (Vitamin D3)) 2,000 Unit Capsule 2,000 Unit PO 1700 Condition at discharge Stable Instructions to patient/family Please see electronic discharge instructions given to patient. Clinical Quality Measures DVT/VTE Risk/Contraindication: Risk Factor Score Per Nursin Copy Copies To 1: GUERRERO DUTTON DO Problem Qualifiers (1) Dysphagia: Qualified Codes: R13.10 - Dysphagia, unspecified DECLAN PEREZ MD Jun 21, 2019 11:26
--- NOTE | 2019-06-21 11:31 | Therapy Team Discharge Summary ---
Therapy Discharge Summary Discharge Recommendations Date of Discharge Occupational Therapy Decreased Activ Tolerance, Decreased Safety Aware, Decreased UE Strength, Impaired Funct Balance, Impaired I ADL's, Impaired Self-Care Skills Speech-Language Pathology Patient received dysphagia therapy due to aspiration pneumonia and sepsis. The patient was initially placed on a Dysphagia II diet level with honey consistency liquids. The patient made good progress on that diet level and was able to upgrade to a regular yesterday. Trials of thin liquids were given on 06/21/19 with immediate cough. The patient will discharge to his assisted living facility today with a regular diet level and continued honey consistency liquids. 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 He is being discharged from [facility] at this time. PT Snf Goals Snf Goals PT Snf Goals Time Frame: Jun 23, 2019 Transfers (B,C,W/C) (FIM): 5 Sit to Lying (QC): 4 Lying-Sitting on Side/Bed(QC): 4 Sit to Stand (QC): 4 Rollin Chair/Sas-sb-Fedhy Xfer(QC): 4 Gait (FIM): 5 Distance: 150' Walk 50ft with 2 Turns (QC): 4 Walk 150 ft (QC): 4 Gait Level of Assist: 5 Gait Assistive Device: FWW OT Supervisor Inspection Room Goals Supervisor Inspection Room Goals Eating (FIM): 7 Eating (QC): 6 Groomin Oral Hygiene (QC): 6 Bathing(FIM): 5 Upper Body Dressing(FIM): 5 Lower Body Dressing(FIM): 5 Toileting(FIM): 6 Toileting Hygiene (QC): 6 Transfers (B,C,W/C) (FIM): 6 Toilet/Commode Transfer(FIM): 6 Toilet/Commode Transfer (QC): 6 Tub Transfer(FIM): 5 Shower Transfer(FIM): 5 Additional Goals: 1-Demonstrate ADL Tasks, 2-Verbalize Understanding, 3- ImproveStrength/[place] 1=Demonstrate adherence to instructed precautions during ADL tasks. 2=Patient will verbalize/demonstrate understanding of assistive devices/modifications for ADL. 3=Patient will improve strength/tolerance for activity to enable patient to perform ADL's. Speech Snf Goals Supervisor Inspection Room Goals The patient will maintain adequate nutrition/hydration via safe effective swallow function. KURT PENA Jun 21, 2019 11:31
[2019-06-21 11:37] VITALS: BP 120/58
--- NOTE | 2019-06-21 12:01 | Therapy Team Discharge Summary ---
Therapy Discharge Summary Discharge Recommendations Date of Discharge Jun 21, 2019 at 11:39 Therapy D/C Recommendations: Assisted Living, Occupational Therapy Home Care, Scheduled Assistance Occupational Therapy Pt. seen by therapy to increase overall strength and independence. Pt. did not meet most goals at time of testing due to slight decreased problem solving per notes. Pt. discharging today with family assistance. Recommend follow up OT care at that time. Decreased Activ Tolerance, Decreased UE Strength, Impaired I ADL's, Impaired Self-Care Skills PT Prison Goals Corporation Officer Goals PT Corporation Officer Goals Time Frame: Jun 23, 2019 Transfers (B,C,W/C) (FIM): 5 Sit to Lying (QC): 4 Lying-Sitting on Side/Bed(QC): 4 Sit to Stand (QC): 4 Rollin Chair/Xql-dz-Tsasb Xfer(QC): 4 Gait (FIM): 5 Distance: 150' Walk 50ft with 2 Turns (QC): 4 Walk 150 ft (QC): 4 Gait Level of Assist: 5 Gait Assistive Device: FWW OT Corporation Officer Goals Corporation Officer Goals Eating (FIM): 7 (not met) Eating (QC): 6 (met) Groomin (not met) Oral Hygiene (QC): 6 (not met) Bathing(FIM): 5 (not met) Upper Body Dressing(FIM): 5 (not met) Lower Body Dressing(FIM): 5 (not met) Toileting(FIM): 6 (not met) Toileting Hygiene (QC): 6 (not met) Transfers (B,C,W/C) (FIM): 6 (not met) Toilet/Commode Transfer(FIM): 6 (not met) Toilet/Commode Transfer (QC): 6 (not met) Tub Transfer(FIM): 5 (not met) Shower Transfer(FIM): 5 (not met) Additional Goals: 1-Demonstrate ADL Tasks, 2-Verbalize Understanding, 3- ImproveStrength/Concepc[place] 1=Demonstrate adherence to instructed precautions during ADL tasks. 2=Patient will verbalize/demonstrate understanding of assistive devices/modifications for ADL. 3=Patient will improve strength/tolerance for activity to enable patient to perform ADL's. Speech Corporation Officer Goals Corporation Officer Goals The patient will maintain adequate nutrition/hydration via safe effective swallow function. ROGELIO ARRIAZA OT Jun 21, 2019 12:01
== END 2019-06-21 11:39 | DRG 690 ==
LOC: 4TH 10:36
PROVIDERS: ADMIT Family Medicine; ATTEND Family Medicine
DX: N39.0 Urinary tract infection, site not specified (principal); B96.29 Other Escherichia coli [E. coli] as the cause of diseases classified elsewhere; R13.10 Dysphagia, unspecified; R53.81 Other malaise; Z66 Do not resuscitate; Z16.12 Extended spectrum beta lactamase (ESBL) resistance
CPT/HCPCS: 36415; 80048; 85027; 94760

== ENCOUNTER 2019-06-29 19:26 | Inpatient (IN) | payer MEDICARE | END 2019-07-06 15:16 | disposition designated cancer center or children's hospital (05) | LOC: ER 19:26 → 4TH 22:00 | DX: A41.9 Sepsis, unspecified organism (principal); N39.0 Urinary tract infection, site not specified; B96.29 Other Escherichia coli [E. coli] as the cause of diseases classified elsewhere; N13.6 Pyonephrosis; I48.91 Unspecified atrial fibrillation; I25.10 Atherosclerotic heart disease of native coronary artery without angina pectoris; I25.2 Old myocardial infarction; I10 Essential (primary) hypertension; Z66 Do not resuscitate; R60.9 Edema, unspecified; K21.9 Gastro-esophageal reflux disease without esophagitis; F41.9 Anxiety disorder, unspecified; F32.9 Major depressive disorder, single episode, unspecified; K57.90 Diverticulosis of intestine, part unspecified, without perforation or abscess without bleeding; Z95.828 Presence of other vascular implants and grafts; Z86.718 Personal history of other venous thrombosis and embolism ==

== ENCOUNTER 2019-07-11 14:43 | Inpatient (IN) | payer MEDICARE ==
[~2019-07-11] VITALS: Ht 180.3 cm; Wt 98.2 kg
[~2019-07-11 14:43] MED LIST changes: +CHOL20003 PO; +CRAN3875 PO; +METH500T47 PO; +MULT1TAB59 PO
[2019-07-11 15:16] LABS: BILIRUBIN,URINE NEGATIVE (NEGATIVE); CLARITY,URINE VERY CLOUDY; COLOR,URINE YELLOW; GLUCOSE, URINE (UA) NEGATIVE (NEGATIVE); KETONES,URINE NEGATIVE (NEGATIVE); LEUKOCYTE ESTERASE ,URINE 3+ (NEGATIVE); NITRITE,URINE POSITIVE (NEGATIVE); PH,URINE 6.5 (5-9); PROTEIN,URINE 4+ (NEGATIVE); UROBILINOGEN,URINE NORMAL (NORMAL)
[2019-07-11 15:23] LABS: WBC,URINE TNTC /HPF
[2019-07-11 15:24] LABS: BACTERIA,URINE LARGE /HPF
--- NOTE | 2019-07-11 15:30 | Diagnostic Imaging Report ---
INDICATION: Sepsis. Fever. Cough. COMPARISON: 06/29/2019. FINDINGS: Single frontal view of the chest demonstrates normal heart size and pulmonary vascularity. The lungs are well aerated and clear. No large pleural effusion or pneumothorax is seen. The visualized osseous structures show no acute abnormalities. IMPRESSION: 1. No acute cardiopulmonary process. Dictated by: Dictated on workstation # [id number]
[2019-07-11] MEDS ORDERED: NS IV 1000 ML 1,000 ML IV ONE ×3 (15:32→17:41)
[2019-07-11] MEDS ORDERED: MEROPENEM 1,000 MG in WATER (STERILE) FOR INJECTION 20 ML IV ONE (15:45)
--- NOTE | 2019-07-11 15:54 | ED General ---
General Chief Complaint: General Problems/Pain Stated Complaint: LOWER BP;FEVER Nursing Triage Note: THE PT ARRIVAL WITH HIS HEALTH CARE PROVIDER FROM THE FACILITY. THE PT IS AMBULATORY WITH HIS WALKER TO THE ROOM WITHOUT DIFFICULTY. NO DISTRESS IS SEEN ON ARRIVAL. Nursing Sepsis Screen: Possible Sepsis Risk Source of Information: Patient, Caregiver, Old Records Exam Limitations: No Limitations History of Present Illness Date Seen by Provider: Jul 11, 2019 Time Seen by Provider: 14:45 Initial Comments This 88-year-old gentleman who is a resident of [facility] presents to the emergency room because of concern for progressive weakness, temperature up to 1 02, tachycardia up to 130s, and recent history of sepsis from urinary tract infection. He was admitted to the hospital June 29 for a highly resistant strain of Escherichia coli sepsis. He has also had struggles with urinary retention. He has been retaining up to 230 ML on post void straight catheters at the [facility]. He has been seeing Dr. Bosch. Allergies and Home Medications Allergies Coded Allergies: benazepril (Verified Adverse Reaction, Unknown, cough, 06/13/19) Home Medications Acetaminophen 325 Mg Tablet, 650 MG PO Q4H PRN for PAIN-MILD OR TEMPATURE, (Reported) Alprazolam 0.25 Mg Tablet, 0.25 MG PO Q12H PRN for ANXIETY, (Reported) Amoxicillin 500 Mg Tablet, 2,000 MG PO UD PRN for 1HR PRIOR TO DENTAL PROCEDURE, (Reported) Apixaban 2.5 Mg Tablet, 2.5 MG PO 1199,1999, (Reported) Ascorbic Acid 500 Mg Tablet, 1,000 MG PO 1199,2000, (Reported) TAKES 2 (500MG) TABLETS Calcium Carbonate/Vitamin D3 1 Each Tablet, 1 TAB PO 1199,1999, (Reported) Cholecalciferol (Vitamin D3) 2,000 Unit Capsule, 2,000 UNIT PO 1700, (Reported) Cran/Vitc/Mannose/Fos/Bromeln 3,875 Mg/30 Ml Liquid, 30 ML PO DAILY, (Reported) Doxazosin Mesylate 4 Mg Tablet, 4 MG PO HS, (Reported) Famotidine 20 Mg Tablet, 20 MG PO 1200, (Reported) Fish Oil/Dha/Epa 1 Each Capsule, 1,200 MG PO 1199,1999, (Reported) Folic Acid 1 Mg Tablet, 1 MG PO DAILY, (Reported) Mag Hydrox/Al Hydrox/Simeth 30 Ml Oral.susp, 30 ML PO Q4H PRN for INDIGESTION, ( Reported) Melatonin 3 Mg Tablet, 3 MG PO HS, (Reported) Menthol/Lanolin/Calamine/Znox 71 Gm Oint, TP TID PRN for REDNESS/IRRITATION, (Reported) APPLY TO BUTTOCKS Methylcellulose 500 Mg Tablet, 1,000 MG PO 1700, (Reported) DRINK 6-8 OUNCES OF WATER WITH THIS MEDICATION Metoprolol Tartrate 25 Mg Tablet, 25 MG PO BID, (Reported) HOLD IF PULSE <60 Multivitamin W-Minerals/Lutein 1 Each Tablet, 1 EACH PO DAILY, (Reported) Nortriptyline HCl 25 Mg Capsule, 50 MG PO HS, (Reported) TAKES 2 (25MG) CAPSULES Potassium Chloride 20 Meq Tab.er.prt, 20 MEQ PO 1700, (Reported) Triamcinolone Acet 15 Gm Cr, TP DAILY PRN for REDNESS ON FACE BY MOUTH, (Reported) Ubidecarenone/Vit E Acetate 1 Each Capsule, 100 MG PO 1700, (Reported) Venlafaxine HCl 25 Mg Tablet, 25 MG PO DAILY, (Reported) [Mineral Cream] , TOP UD PRN for DRYNESS/ITCHING, (Reported) APPLY TOPICALLY TO BODY WHEN C/O DRYNESS AND ITCHY Patient Home Medication List Home Medication List Reviewed: Yes Review of Systems Review of Systems Constitutional: see HPI EENTM: no symptoms reported Respiratory: no symptoms reported Cardiovascular: no symptoms reported Gastrointestinal: no symptoms reported Genitourinary: see HPI Musculoskeletal: no symptoms reported Skin: no symptoms reported Psychiatric/Neurological: No Symptoms Reported Hematologic/Lymphatic: No Symptoms Reported Immunological/Allergic: no symptoms reported Past Xoanfkt-Lxwoar-Mdglco Hx Past Med/Social Hx: Reviewed and Corrections made Patient Social History 2nd Hand Smoke Exposure: No Recent Foreign Travel: No Contact w/Someone Who Travel: No Recent Infectious Disease Expo: No Recent Hopitalizations: No Immunizations Up To Date Date of Pneumonia Vaccine: Aug 05, 2011 Date of Influenza Vaccine: Jul 18, 2014 Seasonal Allergies Seasonal Allergies: No Past Medical History Surgeries: Yes ([place] filter) Respiratory: No Cardiac: Yes (EDEMA) Atrial Fibrillation, Chronic Edema/Swelling, Coronary Artery Disease, Deep Vein Thrombosis, Heart Attack, Hypertension Neurological: Yes Dementia Reproductive Disorders: No Genitourinary: No Gastrointestinal: Yes Gastroesophageal Reflux Musculoskeletal: No Endocrine: No HEENT: No Cancer: No Psychosocial: Yes Anxiety, Depression Integumentary: No Blood Disorders: No Family Medical History No Pertinent Family Hx Physical Exam-Suspected Sepsis Physical Exam Vital Signs Vital Signs - First Documented 07/11/19 07/11/19 07/11/19 15:30 17:36 17:50 Temp 36.8 Pulse 116 Resp 18 B/P (MAP) 128/76 (93) Pulse Ox 96 O2 Delivery Room Air O2 Flow Rate 2.00 Capillary Refill : Less Than 3 Seconds Blood Pressure Mean: 93 Height, Weight, BMI Height: 5'7.00" Weight: 215lbs. 2.0oz. 97.787926zd; 157.00 BMI Method:Stated General Appearance: No Apparent Distress, WD/WN, Other (appears weak) HEENT: PERRL/EOMI, Normal ENT Inspection, Other (oropharynx fairly dry) Neck: Normal Inspection Respiratory: Lungs Clear, Normal Breath Sounds, No Accessory Muscle Use, No Respiratory Distress Cardiovascular: No Edema, No Murmur, Tachycardia Gastrointestinal: Normal Bowel Sounds, Soft, Tenderness (slight tenderness in the right lower quadrant) Extremity: Normal Inspection, Non Tender, No Pedal Edema Neurologic/Psychiatric: Alert, Oriented x3, No Motor/Sensory Deficits, Normal Mood/Affect, 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 Norm as Tested Skin: normal color, warm/dry Focused Exam Sepsis Stage: Severe Sepsis Possible Source: Genitouriary Lactate Level 07/11/19 16:15: Lactic Acid Level 3.37*H 07/11/19 18:25: Lactic Acid Level 2.02*H Time of Focused Exam: 17:25 Respiratory: Lungs Clear, Normal Breath Sounds, No Accessory Muscle Use, No Respiratory Distress Cardiovascular: No Edema, No Murmur, Tachycardia Capillary Refill: Less Than 3 Seconds Peripheral Pulses: 2+ Radial Pulses (R) Skin: normal color, cool (slightly cool) Lactic Acid Level Laboratory Tests Test 07/11/19 16:15 07/11/19 18:25 Lactic Acid Level 3.37 MMOL/L (0.50-2.00) *H 2.02 MMOL/L (0.50-2.00) *H Within 3hrs of presentation: Admin fluids, Admin 30ml/kg IBW due to BMI>30, Admin ABX, Blood cultures prior to ABX's, Focus exam, Lactate level Progress/Results/Core Measures Suspected Sepsis Recent Fever Within 48 Hours: Yes Infection Criteria Present: Suspected New Infection New/Unexplained Altered Menta: No Sepsis Screen: Possible Sepsis Risk SIRS Temperature: Pulse: 116 Respiratory Rate: 18 Laboratory Tests 07/11/19 16:00: White Blood Count 15.8H Blood Pressure 128 /76 Mean: 93 07/11/19 16:15: Lactic Acid Level 3.37*H 07/11/19 18:25: Lactic Acid Level 2.02*H Laboratory Tests 07/11/19 16:00: Creatinine 3.38#H, Platelet Count 198, Total Bilirubin 1.4H 07/11/19 16:20: INR Comment 1.2 Results/Orders Lab Results Laboratory Tests Test 07/11/19 15:00 07/11/19 16:00 07/11/19 16:15 07/11/19 16:20 Range/Units Urine Color YELLOW Urine Clarity VERY CLOUDY H Urine pH 6.5 5-9 Urine Specific [place] 1.010 L 1.016-1.022 Urine Protein 4+ NEGATIVE Urine Glucose (UA) NEGATIVE NEGATIVE Urine Ketones NEGATIVE NEGATIVE Urine Nitrite POSITIVE H NEGATIVE Urine Bilirubin NEGATIVE NEGATIVE Urine Urobilinogen NORMAL NORMAL MG/DL Urine Leukocyte Esterase 3+ H NEGATIVE Urine RBC (Auto) 4+ H NEGATIVE Urine RBC NONE /HPF Urine WBC TNTC H /HPF Urine Crystals NONE /LPF Urine Bacteria LARGE H /HPF Urine Casts NONE /LPF Urine Mucus MODERATE H /LPF Urine Culture Indicated CULTURE PENDING White Blood Count 15.8 H 4.3-11.0 10^3/uL Red Blood Count 4.02 L 4.35-5.85 10^6/uL Hemoglobin 12.4 L 13.3-17.7 G/DL Hematocrit 38 L 40-54 % Mean Corpuscular Volume 95 80-99 FL Mean Corpuscular Hemoglobin 31 25-34 PG Mean Corpuscular Hemoglobin Concent 32 32-36 G/DL Red Cell Distribution Width 12.8 10.0-14.5 % Platelet Count 198 130-400 10^3/uL Mean Platelet Volume 10.2 7.4-10.4 FL Neutrophils (%) (Auto) 88 H 42-75 % Lymphocytes (%) (Auto) 4 L 12-44 % Monocytes (%) (Auto) 7 0-12 % Eosinophils (%) (Auto) 0 0-10 % Basophils (%) (Auto) 0 0-10 % Neutrophils # (Auto) 13.9 H 1.8-7.8 X 10^3 Lymphocytes # (Auto) 0.7 L 1.0-4.0 X 10^3 Monocytes # (Auto) 1.2 H 0.0-1.0 X 10^3 Eosinophils # (Auto) 0.0 0.0-0.3 10^3/uL Basophils # (Auto) 0.0 0.0-0.1 10^3/uL Neutrophils % (Manual) 81 % Lymphocytes % (Manual) 9 % Monocytes % (Manual) 7 % Band Neutrophils 3 % Hypersegmented Neutrophils SLIGHT Sodium Level 137 135-145 MMOL/L Potassium Level 5.2 H 3.6-5.0 MMOL/L Chloride Level 105 98-107 MMOL/L Carbon Dioxide Level 23 21-32 MMOL/L Anion Gap 9 5-14 MMOL/L Blood Urea Nitrogen 35 H 7-18 MG/DL Creatinine 3.38 #H 0.60-1.30 MG/DL Estimat Glomerular Filtration Rate 17 BUN/Creatinine Ratio 10 Glucose Level 245 H 70-105 MG/DL Calcium Level 9.6 8.5-10.1 MG/DL Corrected Calcium 9.9 8.5-10.1 MG/DL Total Bilirubin 1.4 H 0.1-1.0 MG/DL Aspartate Amino Transf (AST/SGOT) 27 5-34 U/L Alanine Aminotransferase (ALT/SGPT) 30 0-55 U/L Alkaline Phosphatase 113 40-136 U/L Total Protein 7.1 6.4-8.2 GM/DL Albumin 3.6 3.2-4.5 GM/DL Lactic Acid Level 3.37 *H 0.50-2.00 MMOL/L Prothrombin Time 16.1 H 12.2-14.7 SEC INR Comment 1.2 0.8-1.4 Activated Partial Thromboplast Time 33 24-35 SEC Test 07/11/19 18:25 Range/Units Lactic Acid Level 2.02 *H 0.50-2.00 MMOL/L Micro Results Microbiology 07/11/19 Influenza Types A,B Antigen (PHAM) - Final, Complete My Orders Orders - YULISA FOSS MD Cbc With Automated Diff (9/24/19 14:45) Comprehensive Metabolic Panel (07/11/19 14:45) Blood Culture (07/11/19 14:45) Sputum Culture (07/11/19 14:45) Urinalysis (07/11/19 14:45) Urine Culture (07/11/19 14:45) Protime With Inr (07/11/19 14:45) Partial Thromboplastin Time (07/11/19 14:45) Chest 1 View, Ap/Pa Only (07/11/19 14:45) Ed Iv/Invasive Line Start (07/11/19 14:45) Ed Iv/Invasive Line Start (07/11/19 14:45) Vital Signs Adult Sepsis Patie Q15M (07/11/19 14:45) O2 (07/11/19 14:45) Remove Rings In Anticipation O (07/11/19 14:45) Lactic Acid Analyzer (07/11/19 14:45) Influenza A And B Antigens (07/11/19 15:06) Meropenem (Merrem 1000 Mg) (07/11/19 15:45) Ns Iv 1000 Ml (Sodium Chloride 0.9%) (07/11/19 15:32) Manual Differential (07/11/19 16:00) Bladder Scan (07/11/19 16:43) Ns Iv 1000 Ml (Sodium Chloride 0.9%) (07/11/19 17:01) Ns Iv 1000 Ml (Sodium Chloride 0.9%) (07/11/19 17:41) Medications Given in ED Current Medications Medications Dose Ordered Sig/[place] Route Start Time Stop Time Status Last Admin Dose Admin Meropenem 1000 mg/ Sterile Water 20 ml @ 240 mls/hr ONCE ONCE IV 07/11/19 15:45 07/11/19 15:49 DC 07/11/19 16:43 240 MLS/HR Sodium Chloride 1,000 ml @ 0 mls/hr Q0M ONCE IV 07/11/19 15:32 07/11/19 15:33 DC 07/11/19 16:33 1,000 MLS/HR Vital Signs/I&O 07/11/19 07/11/19 07/11/19 07/11/19 15:30 17:36 17:39 17:44 Temp 36.8 36.9 Pulse 116 98 98 Resp 18 18 18 B/P (MAP) 128/76 (93) 117/67 117/67 Pulse Ox 96 99 O2 Flow Rate 2.00 2.00 07/11/19 07/11/19 17:50 18:14 Temp 37.0 Pulse 100 Resp 24 B/P (MAP) 133/71 Pulse Ox 96 96 O2 Delivery Room Air Room Air Capillary Refill : Less Than 3 Seconds Blood Pressure Mean: 93 Progress Note : Progress Note Septic workup was pursued. Patient was found to have significant urinary tract infection by urinalysis. Based on prior culture results he was treated with meropenem. Due to the significant renal failure, he is considered to be in severe sepsis. 3 L of IV normal saline were ordered. The first 2 were infused in the ER. Case was discussed with Dr. Gonzalez, Dr. Paredes, and Dr. Bosch. Diagnostic Imaging Diagonstic Imaging: Xray Plain Films/CT/US/NM/MRI: chest Comments Chest x-ray viewed by me and report reviewed. See report below: NAME: NICOLE PAREDES [facility] REC#: [id number] PT STATUS: REG ER : 1931 PHYSICIAN: YULISA FOSS MD ADMIT DATE: 07/11/19/ER Signed Date of Exam: 07/11/19 CHEST 1 VIEW, AP/PA ONLY INDICATION: Sepsis. Fever. Cough. COMPARISON: 06/29/2019. FINDINGS: Single frontal view of the chest demonstrates normal heart size and pulmonary vascularity. The lungs are well aerated and clear. No large pleural effusion or pneumothorax is seen. The visualized osseous structures show no acute abnormalities. IMPRESSION: 1. No acute cardiopulmonary process. Dictated by: Dictated on workstation # [id number] Dict: 07/11/19 1525 Trans: 07/11/19 1651 Interpreted by: ROSA WILSON MD Electronically signed by: ROSA WILSON MD 07/11/19 1651 Departure Communication (Admissions) Time/Spoke to Admitting Phy: 17:07 Dr. Gonzalez Time/Spoke to Consulting Phy: 17:10 Dr. Bosch Impression Primary Impression: Severe sepsis Additional Impressions: Urinary tract infection Qualified Codes: N39.0 - Urinary tract infection, site not specified Acute renal failure Qualified Codes: N17.9 - Acute kidney failure, unspecified Disposition: 09 ADMITTED INPATIENT Condition: Improved Admissions Decision to Admit Reason: Admit from ER (General) Decision to Admit/Date: Jul 11, 2019 Time/Decision to Admit Time: 15:30 Departure-Patient Inst. Referrals: BRIANNA DUTTON DO (PCP/Family) Primary Care Physician YULISA FOSS MD Jul 11, 2019 15:53
[2019-07-11 16:02] LABS: BASOPHILS % (AUTO) 0 % (0-10); EOSINOPHILS % (AUTO) 0 % (0-10); HEMATOCRIT 38 % (40-54); HEMOGLOBIN 12.4 G/DL (13.3-17.7); LYMPHOCYTES # (AUTO) 0.7 X 10^3 (1.0-4.0); LYMPHOCYTES % (AUTO) 4 % (12-44); MEAN CORPUSCULAR HEMOGLOBIN 31 PG (25-34); MEAN CORPUSCULAR HGB CONC 32 G/DL (32-36); MEAN CORPUSCULAR VOLUME 95 FL (80-99); MEAN PLATELET VOLUME 10.2 FL (7.4-10.4); MONOCYTES # (AUTO) 1.2 X 10^3 (0.0-1.0); MONOCYTES % (AUTO) 7 % (0-12); NEUTROPHILS # (AUTO) 13.9 X 10^3 (1.8-7.8); NEUTROPHILS % (AUTO) 88 % (42-75); PLATELET COUNT 198 10^3/uL (130-400); RED CELL DISTRIBUTION WIDTH 12.8 % (10.0-14.5); WHITE BLOOD COUNT 15.8 10^3/uL (4.3-11.0)
[2019-07-11 16:27] LABS: ALBUMIN 3.6 GM/DL (3.2-4.5); BILIRUBIN,TOTAL 1.4 MG/DL (0.1-1.0); CALCIUM 9.6 MG/DL (8.5-10.1); CREATININE SERUM 3.38 MG/DL (0.60-1.30); POTASSIUM 5.2 MMOL/L (3.6-5.0); TOTAL PROTEIN 7.1 GM/DL (6.4-8.2)
[2019-07-11 16:48] LABS: INR 1.2 (0.8-1.4); PROTHROMBIN TIME PATIENT 16.1 SEC (12.2-14.7)
[2019-07-11 17:26] LABS: BAND NEUTROPHILS 3 %; HYPERSEGMENTED NEUT SLIGHT; LYMPHOCYTES % (MANUAL) 9 %; MONOCYTES % (MANUAL) 7 %; NEUTROPHILS % (MANUAL) 81 %
--- NOTE | 2019-07-11 17:50 | NUR ---
NICOLE BOTELLO admitted to room 424-1, with an admitting diagnosis of SEPSIS, UTI, ARF, on 07/11/19 from ED via STRETCHER, accompanied by ED STAFF. NICOLE BOTELLO introduced to surroundings, call light, bed controls, phone, TV, temperature control, lights, meal times, smoking policy, visitor policy, side rail policy, bathrooms and showers. Patient Rights given to patient in the handbook. NICOLE BOTELLO verbalizes understanding that [facility] is not responsible for the loss or damage to any personal effects or valuables that are kept in the patients possession during their hospitalization. The following Patient Care Plans were discussed with the PATIENT: Discharge Planning, URINARY TRACT INFECTION,SEPSIS, and KNOWLEDGE DEFICIT. NICOLE BOTELLO verbalizes understanding of Interdisciplinary Patient Education. Patient and/or family were informed about the Rapid Response Team and its purpose.
[2019-07-11 18:14] VITALS: BP 133/71
[2019-07-11] MEDS ORDERED: ACETAMINOPHEN 500 MG TAB (TYLENOL) PO PRN (18:15)
[2019-07-11] MEDS ORDERED: NS IV NR (18:15)
[2019-07-11] MEDS: NS IV 1000 ML 1,000 ML IV SCH ×2 (18:29→19:40)
[2019-07-11] MEDS ORDERED: CATHETER FLUSH 10 ML SYR IV PRN (18:30)
--- NOTE | 2019-07-11 18:57 | NUR ---
DR IVY NOTIFIED OF CRITICAL LACTIC ACID OF 2.02, WHICH IS DOWN FROM 3.37. NO NEW ORDERS. CONTINUE FLUIDS ORDERED
--- NOTE | 2019-07-11 19:36 | NUR ---
SPO2 92% ON RA. 2L O2 PLACED PER PRN ORDER. HR RUNNING IN 140'S PER TELEMETRY READINGS . [employer] D[employer]LLING MANAGER HAILEY CALLED DR IVY EKG ORDERED. CALL DR CARD WITH THE RESULT OF THE EKG
[2019-07-11 20:00] VITALS: BP 142/80
--- NOTE | 2019-07-11 20:19 | NUR ---
1929 ICU called nurse and stated court recording monitor shows heart rate 130-140 and maintaining for the past 10 minutes and she notified doctor and received orders for EKG and call results to Dr. Bass. Pt sitting up in bed eating a little bit of supper. States cannot feel heart racing. States he is not very hungry but feels tired and states ready for bed. 1999 EKG done. Sent to Dr. Bass with pt update. HS meds given and assisted to get ready for bed. Color pale and skin cool to touch. Denies pain. Denies need to go to bathroom before going to bed. IV infusing without difficulty. Had just left room when ICU nurse called and stated pt in v fib. Upon entering room pt gasping for air. Patted nurse on hand and closed his eyes. Pulse was very faint and arms shaky from heart rate. Gasped a couple of times and then no breath sounds or pulse detected. Verified by second nurse. Rn Spine and charge nurse at bedside, Pt pronounced at 2019. Dr. Bass notified at 2019.
--- NOTE | 2019-07-11 20:41 | NUR ---
[address] Paredes notified and states he will notify his sister. Charge nurse notified pastoral care. 2040 [place] donor transplant called and pt not a candidate due to age. Pt prepared for family visitation.
[2019-07-11] MEDS ORDERED: APIXABAN 2.5 MG (ELIQUIS) TABLET PO SCH (21:00)
[2019-07-11] MEDS ORDERED: NORTRIPTYLINE 25 MG (PAMELOR) CAP PO SCH (21:00)
[2019-07-11] MEDS ORDERED: meTOprolol TARTRATE 25 MG (LOPRESSOR) TABLET PO SCH (21:00)
--- NOTE | 2019-07-11 21:05 | NUR ---
Pastoral care here and Dr. Paredes here.
--- NOTE | 2019-07-11 22:00 | NUR ---
Daughter Jen called and questions answered. Requested to say a few words and goodbye to her dad on telephone. Daughter crying on phone. Offered to hole body if she would like to see her father lynda. States she can't come tonight.
--- NOTE | 2019-07-11 22:10 | NUR ---
2210 Pt Transferred to [facility] per stretcher
[2019-07-12] MEDS ORDERED: MEROPENEM 500 MG/SWFI 10 ML IV PUSH IV SCH ×2 (05:00)
--- NOTE | 2019-07-12 16:21 | Discharge Summary ---
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 he was started started on meropenem per previous sensitivities. He was given high- volume fluid resuscitation due to lactic acidosis. And blood cultures were obtained. Despite this he clinically deteriorated and as he was a DO NOT RESUSCITATE decision was made to transition to comfort measures. He shortly after admission. I did not see patient prior to his . AMIRA IVY MD Jul 12, 2019 16:21
--- NOTE | 2019-07-12 17:20 | NUR ---
Follow up visit over the phone with pt's daughter Jen for grief support and debriefing of emotions.
== END 2019-07-11 20:19 | disposition expired | DRG 872 ==
LOC: ER 14:43 → EDUNIT# 14:43 → 4TH 17:07
PROVIDERS: ADMIT Family Medicine; ATTEND Family Medicine
DX: A41.51 Sepsis due to Escherichia coli [E. coli] (principal); R65.20 Severe sepsis without septic shock; N39.0 Urinary tract infection, site not specified; N17.9 Acute kidney failure, unspecified; E87.2 Acidosis; N31.9 Neuromuscular dysfunction of bladder, unspecified; R33.9 Retention of urine, unspecified; Z66 Do not resuscitate; Z51.5 Encounter for palliative care; I48.91 Unspecified atrial fibrillation; I10 Essential (primary) hypertension; I25.10 Atherosclerotic heart disease of native coronary artery without angina pectoris; F03.90 Unspecified dementia, unspecified severity, without behavioral disturbance, psychotic disturbance, mood disturbance, and anxiety; K21.9 Gastro-esophageal reflux disease without esophagitis; F41.9 Anxiety disorder, unspecified; F32.9 Major depressive disorder, single episode, unspecified; I25.2 Old myocardial infarction; Z16.12 Extended spectrum beta lactamase (ESBL) resistance; Z86.718 Personal history of other venous thrombosis and embolism
CPT/HCPCS: 36415; 71045; 80053; 81000; 83605; 85007; 85027; 85610; 85730; 87040; 87077; 87088; 87184; 87186; 87804; 96374